=== PATIENT | female | born 2000 | race Caucasian/White ===

== ENCOUNTER → 2019-11-22 14:46 | Outpatient (CLI) | payer BC, SELFPAY ==
--- NOTE | 2019-11-22 14:52 | US_ITS ---
PROCEDURE: US THYROID CLINICAL INDICATION: THYROID NODULE Left-sided neck nodule COMPARISON: CSWO CT CERVICAL SPINE W/O CONT from 02/08/2016 FINDINGS: Right lobe: 2.1cm x 5.5cm x 2.4cm Left lobe: 2.4cm x 6.4cm x 2.6cm Isthmus: Thickened at 11 mm with heterogeneous echogenicity Additional findings: The there is diffuse bilateral heterogeneous echogenicity of the thyroid gland with multinodular configuration but no discrete nodule identified. There is a small subcutaneous nodule corresponding to the palpable abnormality in left paracentral aspect of the neck measuring 5 mm. This is nonspecific and could be due to small sebaceous cyst. There are low level internal echoes. The IMPRESSION: 1. Enlarged thyroid gland with heterogeneous echogenicity consistent with goiter. 2. Small subcutaneous nodule in the central aspect of neck on the left at 5 x 3 mm possibly due to a sebaceous cyst Dictated by: Dewey Giles MD 11/23/2019 12:44 Electronically signed by Dewey Giles MD in [place] 11/23/2019 12:44
== END ==
PROVIDERS: PCP Family Medicine; Visit Provider Family Medicine
DX: E04.1 Nontoxic single thyroid nodule (principal)
CPT/HCPCS: 76536

== ENCOUNTER 2023-11-27 08:18 | Outpatient (CLI) | payer BC, SELFPAY ==
--- NOTE | 2023-11-27 08:27 | US_ITS ---
PROCEDURE: US TRANSVAGINAL CLINICAL INDICATION: BLEEDING COMPARISON: No exams were available for comparison FINDINGS: Transvaginal sonographic images of the pelvis were obtained. UTERUS: 6.2cm x 4.5cmx 3.2cm anteverted with a combined endometrial thickness of 3.8mm. LEFT OVARY: 3.2cmx1.6 cmx1.9cm with a volume of 5.3ml. The left ovary appears polycystic with multiple peripheral follicles. RIGHT OVARY: 3.0cmx 3.0cmx1.9 cm with a volume of 8.8ml. The right ovary appears polycystic with multiple peripheral follicles. Both ovaries are seen and appear polycystic. Doppler flow to both ovaries are seen. There is no fluid in the cul-de-sac. IMPRESSION: 1. Anteverted uterus normal in shape and size. The endometrium is thin. 2. There is a small 3.2 mm anechoic circular area in the lower uterine segment. Suggest test. 3. Both ovaries are seen and appear polycystic. 4. No fluid in the cul-de-sac. Dictated by: Edmund Van MD 11/27/2023 09:35 Edmund Van MD in [place] 11/27/2023 09:35
== END 2023-11-27 23:59 | disposition home or self-care (01) ==
LOC: RAD 08:19
PROVIDERS: PCP Physician Assistant; Visit Provider Physician Assistant
DX: N93.9 Abnormal uterine and vaginal bleeding, unspecified (principal)
CPT/HCPCS: 76830

== ENCOUNTER 2023-12-24 07:52 | Outpatient (CLI) | payer BC, SELFPAY ==
[2023-12-24 08:10] LABS: Basophils # 0.1 K/mm3 (0-0.2); Basophils % 1.6 % (0.1-2.0); Eosinophils # 0.1 K/mm3 (0.0-0.4); Eosinophils % 2.9 % (0.1-12.0); Hematocrit 42.9 % (37.0-47.0); Hemoglobin 13.5 g/dL (12.2-16.2); Lymphocytes # 2.3 K/mm3 (0.7-4.5); Lymphocytes % 47.4 % (10-50); Mean Corpuscular HGB Conc 31.5 g/dL (31.8-35.4); Mean Corpuscular Hemoglobin 32.5 pg (27.0-31.2); Mean Corpuscular Volume 103.2 fl (81-99); Mean Platelet Volume 7.7 fl (7.4-10.4); Monocytes # 0.3 K/mm3 (0.1-1.0); Monocytes % 6.5 % (1.7-9.3); Neutrophils % 41.6 % (37.0-80.0); Platelet Count 302 K/mm3 (142-424); Red Blood Count 4.16 M/mm3 (4.20-5.40); Red Cell Distribution Width 12.7 % (11.5-17.5); White Blood Count 4.8 K/mm3 (4.8-10.8)
[2023-12-24 10:42] LABS: Albumin Level 4.3 g/dl (3.5-5.0); Chloride 106 mmol/L (98-107); Potassium 4.4 mmoL/L (3.5-5.1); Sodium 140 mmol/L (136-145)
[2023-12-24 10:44] LABS: Alanine Aminotransferase 19 U/L (12-78); Albumin/Globulin Ratio 1.4 (1.1-1.8); Anion Gap 7.4 mEq/L (5-15); Aspartate Amino Transferase 27 U/L (14-36); Blood Urea Nitrogen 19 mg/dl (7-17); Carbon Dioxide 31 mmol/L (22.0-30.0); Estimated Glomerular Filt Rate 88 ml/min (>60); GFR (African American) 107 ML/MIN (>60); Total Protein,Serum 7.3 g/dl (6.3-8.2)
[2023-12-24 10:45] LABS: Alkaline Phosphatase 43 U/L (38-126); Bilirubin,Total 0.6 mg/dl (0.2-1.3); Calcium 9.3 mg/dl (8.4-10.2); Chol/HDL Ratio 3.6 (1-3.5); Cholesterol 267 mg/dl (140-200); Glucose 75 mg/dl (74-100); Glucose,Fasting 75 mg/dl (74-100); HDL Cholesterol 74 mg/dl (40-60); Triglycerides 82 mg/dl (30-150); VLDL Cholesterol 16 mg/dL (0-40)
[2023-12-24 10:56] LABS: Direct LDL Cholesterol 146.39 mg/dL (100-129)
[2023-12-24 11:07] LABS: HCG,Quantitative < 2 mIU/ml (0-5.42)
[2023-12-24 11:40] LABS: Hemoglobin A1C 4.8 % (4.0-6.0)
[2023-12-25 10:43] LABS: Estradiol 20.9 pg/mL (.); FSH 3.9 mIU/mL (.); LH 1.1 mIU/mL (.); Progesterone 0.4 ng/mL (.); Prolactin 9.2 ng/mL (4.8-33.4)
[2023-12-25 17:43] LABS: Insulin Level Total 2.3 uIU/mL (2.6-24.9)
[2023-12-27 01:06] LABS: Anti Mullerian Hormone (AMH) 11.3 ng/mL (.)
[2024-01-08 09:13] LABS: Testosterone, Total, LC/MS 19 ng/dL (.)
== END 2023-12-24 23:59 | disposition home or self-care (01) ==
LOC: LAB 07:53
PROVIDERS: PCP Physician Assistant; Visit Provider Obstetrics & Gynecology
DX: E28.2 Polycystic ovarian syndrome (principal); Z31.9 Encounter for procreative management, unspecified
CPT/HCPCS: 36415; 80050; 80053; 80061; 82397; 82670; 82947; 83001; 83002; 83036; 83525; 84144; 84146; 84403; 84443; 84702; 85025

== ENCOUNTER 2023-12-26 07:15 | Outpatient (CLI) | payer BC, SELFPAY ==
[2023-12-26 11:48] LABS: Triiodothryronine (T3) Uptake 32 % (23.5-40.5)
[2023-12-26 11:49] LABS: Free Thyroxine Index 1.3 ug/dL (5.93-13.13)
== END 2023-12-26 23:59 | disposition home or self-care (01) ==
LOC: LAB 07:16
PROVIDERS: PCP Physician Assistant; Visit Provider Obstetrics & Gynecology
DX: R79.89 Other specified abnormal findings of blood chemistry (principal)
CPT/HCPCS: 36415; 84436; 84443; 84479

== ENCOUNTER 2024-02-20 07:26 | Outpatient (CLI) | payer BC, SELFPAY | END 2024-02-20 23:59 | disposition home or self-care (01) | LOC: LAB 07:27 | PROVIDERS: PCP Obstetrics & Gynecology; Visit Provider Obstetrics & Gynecology | DX: E03.9 Hypothyroidism, unspecified (principal) | CPT/HCPCS: 36415; 84443 ==

== ENCOUNTER 2024-04-09 08:14 | Outpatient (CLI) | payer BC, SELFPAY ==
[2024-04-09 10:30] LABS: Thyroid Stimulating Hormone 1.64 uIU/mL (0.465-4.68)
== END 2024-04-09 23:59 | disposition home or self-care (01) ==
PROVIDERS: PCP Physician Assistant; Visit Provider Obstetrics & Gynecology
DX: E03.9 Hypothyroidism, unspecified (principal)
CPT/HCPCS: 36415; 84443

== ENCOUNTER 2024-04-29 08:36 | Outpatient (CLI) | payer BC, SELFPAY ==
--- NOTE | 2024-04-29 08:37 | US_ITS ---
PROCEDURE: US TRANSVAGINAL CLINICAL INDICATION: No Period ,PCOS COMPARISON: US US TRANSVAGINAL from 11/27/2023 FINDINGS: Transvaginal sonographic images of the pelvis were obtained. UTERUS: 5.0cm x 3.8cmx 2.9cm anteverted and anteflexed with a combined endometrial thickness of 3.4mm. LEFT OVARY: 2.9cmx2.0cmx1.7cm with a volume of 5.1ml. There are multiple peripheral follicles giving the ovary a polycystic appearance. RIGHT OVARY: 4.0cmx 2.1cmx2.4cm with a volume of 10.8ml. There are multiple peripheral follicles giving the ovary a polycystic appearance. Both ovaries are seen and appear polycystic. Doppler flow to both ovaries are seen. There is a small amount of fluid around the right ovary and in the cul-de-sac.. IMPRESSION: 1. Anteverted and anteflexed uterus normal in shape and size. The endometrium is thin. 2. Both ovaries are seen and appear polycystic. 3. There is a small amount of free fluid around the right ovary and in the cul-de-sac. Dictated by: Edmund Van MD 04/29/2024 11:09 Edmund Van MD in [place] 04/29/2024 11:09
== END 2024-04-29 23:59 | disposition home or self-care (01) ==
LOC: RAD 08:37
PROVIDERS: PCP Physician Assistant; Visit Provider Obstetrics & Gynecology
DX: E28.2 Polycystic ovarian syndrome (principal); Z31.9 Encounter for procreative management, unspecified; E03.9 Hypothyroidism, unspecified
CPT/HCPCS: 76830

== ENCOUNTER 2024-05-06 07:42 | Outpatient (CLI) | payer BC, SELFPAY ==
[2024-05-06 08:13] LABS: Hematocrit 38.7 % (37.0-47.0); Hemoglobin 12.7 g/dL (12.2-16.2); Red Blood Count 4.07 M/mm3 (4.20-5.40); White Blood Count 3.8 K/mm3 (4.8-10.8)
[2024-05-06 08:14] LABS: Eosinophils # 0.1 K/mm3 (0.0-0.4); Eosinophils % 2.9 % (0.1-12.0); Lymphocytes # 1.4 K/mm3 (0.7-4.5); Lymphocytes % 35.4 % (10-50); Mean Corpuscular HGB Conc 32.8 g/dL (31.8-35.4); Mean Corpuscular Hemoglobin 31.2 pg (27.0-31.2); Mean Corpuscular Volume 95.1 fl (81-99); Mean Platelet Volume 9.6 fl (7.4-10.4); Monocytes # 0.5 K/mm3 (0.1-1.0); Monocytes % 12.9 % (1.7-9.3); Neutrophils # 1.8 K/mm3 (1.8-7.8); Neutrophils % 47.5 % (37.0-80.0); Platelet Count 279 K/mm3 (142-424); Red Cell Distribution Width 11.7 % (11.5-17.5)
[2024-05-06 08:47] LABS: Alanine Aminotransferase 21 U/L (12-78); Albumin Level 4.1 g/dl (3.5-5.0); Albumin/Globulin Ratio 1.6 (1.1-1.8); Alkaline Phosphatase 59 U/L (38-126); Aspartate Amino Transferase 30 U/L (14-36); Bilirubin,Total 0.7 mg/dl (0.2-1.3); Blood Urea Nitrogen 17 mg/dl (7-17); Calcium 9.4 mg/dl (8.4-10.2); Carbon Dioxide 36 mmol/L (22.0-30.0); Chloride 105 mmol/L (98-107); Cholesterol 198 mg/dl (140-200); Estimated Glomerular Filt Rate 76 ml/min (>60); GFR (African American) 92 ML/MIN (>60); Globulin 2.6 g/dL (1.3-3.2); Glucose 79 mg/dl (74-100); HDL Cholesterol 66 mg/dl (40-60); Sodium 141 mmol/L (136-145); Total Protein,Serum 6.7 g/dl (6.3-8.2); Triglycerides 91 mg/dl (30-150); VLDL Cholesterol 18 mg/dL (0-40)
[2024-05-06 08:58] LABS: Direct LDL Cholesterol 96.94 mg/dL (100-129)
[2024-05-06 09:07] LABS: Free Thyroxine Index 2.7 ug/dL (5.93-13.13); T4 (Thyroxine) 7.6 ug/dl (5.53-11.0); Triiodothryronine (T3) Uptake 35 % (23.5-40.5)
[2024-05-06 09:11] LABS: 25-OH Vitamin D, Total > 126 ng/mL (30-100); Hemoglobin A1C 4.7 % (4.0-6.0)
[2024-05-06 09:20] LABS: Thyroid Stimulating Hormone 1.26 uIU/mL (0.465-4.68)
[2024-05-06 09:49] LABS: Ferritin 50.5 ng/ml (6.24-137)
[2024-05-06 10:27] LABS: Anion Gap 4.2 mEq/L (5-15); Potassium 4.2 mmoL/L (3.5-5.1)
[2024-05-07 09:09] LABS: Estradiol 23.2 pg/mL (.); FSH 3.2 mIU/mL (.); Prolactin 5.3 ng/mL (4.8-33.4); Testosterone,Total 30 ng/dL (13-71)
== END 2024-05-06 23:59 | disposition home or self-care (01) ==
LOC: LAB 07:43
PROVIDERS: PCP Physician Assistant; Visit Provider Obstetrics & Gynecology
DX: Z31.9 Encounter for procreative management, unspecified (principal); E28.2 Polycystic ovarian syndrome; E03.9 Hypothyroidism, unspecified; E55.9 Vitamin D deficiency, unspecified
CPT/HCPCS: 36415; 80050; 80053; 80061; 82306; 82670; 82728; 83001; 83036; 83525; 83735; 84146; 84403; 84436; 84443; 84479; 85025

== ENCOUNTER 2024-07-15 07:29 | Outpatient (CLI) | payer BC, SELFPAY ==
[2024-07-15 09:05] LABS: Thyroid Stimulating Hormone 1.84 uIU/mL (0.465-4.68)
== END 2024-07-15 23:59 | disposition home or self-care (01) ==
LOC: LAB 07:30
PROVIDERS: PCP Physician Assistant; Visit Provider Obstetrics & Gynecology
DX: R53.83 Other fatigue (principal)
CPT/HCPCS: 36415; 84443

== ENCOUNTER 2024-11-04 07:50 | Outpatient (CLI) | payer BC, SELFPAY ==
--- OUTSIDE RECORDS SUMMARY | 2024-09-28 14:15 | XMS_ITS | Encounter Summary ---
Author Organization [facility] Address [address] [place] [address] Care Team Providers Care Digester Name Role Phone Pcp, No Primary Care Provider [phone] Source Comments This information has been disclosed to you from confidential records protectfrom disclosure by state law. You shall make no further disclosure of thisinformation without the specific, written, and informed release of theindividual to whom it pertains, or as otherwise permitted by law. A generalauthorization for the release of medical or other information is not sufficientfor the purposes of the release of HIV test results or diagnoses. TAN2985.24 Health Encounter Details Date Type Department Care Team (Late st Contact Info) Description 09/28/2024 2:15 PM EDT Clinical Support [facility] Reproductive Endocrinology and Infertility at [address] [address] Mirna Ventura MD [address] [place] [address] Marcelo Loo Encounter for assisted reproductive fertility procedure cycle (Primary Dx); Amenorrhea Social History Tobacco Use Types Packs/Day Years Used Date Smoking Tobacco: Never Smokeless Tobacco: Never Alcohol Use Standard Drinks/Week Comments Not Asked 0 (1 standard drink = 0.6 oz pur e alcohol) Rare Comments Unknown Sex and Gender Information Value Date Recorded Sex Assigned at Not on file Legal Sex Female 2:30 PM EST Gender Identity Not on file Sexual Orientation Not on file documented as of this encounter Progress Notes * Marcelo Loo - 09/28/2024 2:15 PM EDT Labs documented in this encounter Plan of Treatment Not on file documented as of this encounter Procedures Procedure Name Priority Date/Time Associated Diagnosis Comments POCT - PROGESTERONE Routine 09/30/2024 9 :00 AM EDT Encounter for assisted reproductive fertility procedure cycle POCT - ESTRADIOL Routine 09/30/2024 9:00 AM EDT Encounter for assisted reproductive fertility procedure cycle POCT - PROLACTIN Routine 09/30/2024 9:00 AM EDT Amenorrhea documented in this encounter Results * POCT - ESTRADIOL (09/30/2024 9:00 AM EDT) POCT - Estradiol 22.51 [facility] 09/30/2024 9:00 AM EDT us Mirna Ventura MD POINT OF CARE TEST ORDERABLE S Final Result Performing Organization Address [facility] Co de Phone Number [facility] [address] [place] [address] * POCT - PROGESTERONE (09/30/2024 9:00 AM EDT) POCT - Progesterone 0.182 [facility] Serum 09/30/2024 9:00 AM EDT us Mirna Ventura MD POINT OF CARE TEST ORDERABLE S Final Result Performing Organization Address [facility] Co de Phone Number [facility] [address] [place] [address] * POCT - Prolactin (09/30/2024 9:00 AM EDT) POCT - Prolactin 4.77 [facility] 09/30/2024 9:00 AM EDT Yennifer Antonio MD POINT OF CARE TEST ORDERABLES Final Result Performing Organization Address [facility]/ZIP Co de Phone Number [facility] [address] [place] [address] documented in this encounter Visit Diagnoses Diagnosis Encounter for assisted reproductive fertility procedure cycle- Primary Amenorrhea Absence of menstruation documented in this encounter Care Teams Digester Relationship Specialty Start Date End Date Pcp, No No Address PCP - General 07/12/24 documented as of this encounter
--- OUTSIDE RECORDS SUMMARY | 2024-09-28 14:30 | XMS_ITS | Encounter Summary ---
Author Organization [facility] Address [address] [place] [address] Care Team Providers Care Operator Weapon Locating Radar Name Role Phone Pcp, No Primary Care Provider [phone] Source Comments This information has been disclosed [...] release of HIV test results or diagnoses. [id number] Health Encounter Details Date Type Department Care Team (Late st Contact Info) Description 09/28/2024 2:30 PM EDT Clinical Support [facility] Reproductive Endocrinology and Infertility at [facility] [address] [address] Lawson Liu MD [address] [address] Mirna Ventura MD [address] [place] [address] Amenorrhea (Primary Dx); Fragile x chromosome Social History Tobacco Use Types Packs/Day Years [...] on file documented as of this encounter Last Filed Vital Signs Vital Sign Reading Time Taken Comments Blood Pressure 106/70 09/28/2024 1:53 PM EDT Pulse 70 09/28/2024 1:53 PM EDT Temperature - - Respiratory Rate - - Oxygen Saturation 100% 09/28/2024 1:53 PM EDT Inhaled Oxygen Concentration 100% 09/28/2024 1 :53 PM EDT Weight 59 kg (130 lb) 09/28/2024 1:53 PM EDT Height 165.1 cm (5' 5 ) 09/28/2024 1:53 PM EDT Body Mass Index 21.63 09/28/2024 1:53 PM EDT documented in this encounter Progress Notes * Mirna Ventura MD - 09/28/2024 2:30 PM EDT CC: Follow up, discuss test results/next steps HPI: 24 y.o. female here today to discuss the results of her diagnostic testing and discusstreatment options. Last menses July 2023 after she stopped OCP. 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-immune Pertinent History: Duration of infertility: 1 year Cavity/tubal assessment: SIS/HyCoSy on 09/30/2024 pending Ovarian reserve: AMHH 7.93 (08/13/2024) Genetic carrier screening: Fragile X pre-mutation on [place] 14 Prior treatments: none C#/Mo/Yr CRH/ Other Regimen Gn Y/N IUI Y/N Other info Partner history: Name:Dimas Mike : 12/18/1999 Semen Analysis Date Volume Total Conc Motility Grade Morph 08/2024 3 mL 51 mil/mL 80 % - 92 % Received semen analysis from [facility] Review of Systems: The following systems were reviewed and negative, except those noted in HPI: General, cardiovascular, respiratory, gastrointestinal, genitourinary, musculoskeletal, skin, neurologic, psychiatric, endocrine, heme, allergy Objective: Vitals: 09/28/24 1353 BP: 106/70 Patient Position: Sitting Pulse: 70 SpO2: 100% Weight: 130 lb (59 kg) Height: 5' 5 (1.651 m) General: No acute distress, alert & oriented x 3 Results Review: Lab Results Component Value Date ABOGROUP O 08/12/2024 RH Positive 08/12/2024 ABS Negative 08/12/2024 HGB 13.3 08/12/2024 HCT 40.7 08/12/2024 CREATININE 0.76 08/12/2024 POCTAMH 7.93 08/12/2024 POCTFSH 4.17 08/12/2024 POCTLHII 0.885 08/12/2024 POCTESTRDIOL 22.51 09/30/2024 POCTPROGSTRN 0.182 09/30/2024 POCTPRLCTIN 4.77 09/30/2024 Lab Results Component Value Date RUBELLAIGG 1.57 08/12/2024 VARICELLAIGG Non Reactive 08/12/2024 HEPBSAG Negative 08/12/2024 HCVAB Non Reactive 08/12/2024 Assessment: 24 y.o. 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 - Discussed that Fragile X is X linked dominant. Reviewed genetics and implicaitons. S/p genetic counseling - Discussed all treatment options in detail if pursuing Reviewed unmonitored and monitored OI/TIC vs OI/IUI vs IVF Discussed timeline for each option, success rates and costs Given patient's situation would recommend: IVF with PGT-M if they desire to screen for Fragile X, or OI/TIC, or try naturally - Reviewed timeline for OI - Patient would like to move forward with OI medication - Will try with LE 5 on 09/30 if ovaries appear suppressed; good chance she may not respond to oralsand my require gonadotropins; briefly reviewed increased risks of twins/cancellation - Written information/instructions given to patient - RTO on 09/30 or if + UPT I personally saw, examined, and counseled the patient with the fellow/resident/student/JASPAL and agree with the documented assessment and plan above. Mirna Ventura MD Number and Complexity of Problems Addressed 2 or more stable chronic illnesses Amount and/or Complexity of Data to be Reviewed and Analyzed 3+ review of the results of each unique test 2 unique tests ordered Risk of Complications and/or Morbidity or Mortality of Patient Management Minimal documented in this encounter Plan of Treatment Scheduled Orders Name Type Priority Associated Diagnoses Order Schedule POCT - Testosterone Point of Care Testing Routine Amenorrhea 1 Occurrences starting 09/28/2024 until 09/28/2025 documented as of this encounter Results * POCT - Prolactin (09/30/2024 9:00 AM EDT) POCT - Prolactin 4.77 [facility] 09/30/2024 9:00 AM EDT us Yennifer Antonio MD POINT OF CARE TEST ORDERABLES Final Result [facility] [address] [place] [address] documented in this encounter Visit Diagnoses Diagnosis Amenorrhea- Primary Absence of menstruation Fragile x chromosome documented in this encounter Care Teams Operator Weapon Locating Radar Relationship Specialty Start Date End Date Pcp, No No Address PCP - General 07/12/24 documented as of this encounter
--- OUTSIDE RECORDS SUMMARY | 2024-09-30 11:00 | XMS_ITS | Encounter Summary ---
Author Organization [facility] Address [address] [place] [address] Care Team Providers Care Head Of Geography Name Role Phone Pcp, No Primary Care Provider [phone] Source Comments This information has been disclosed [...] release of HIV test results or diagnoses. [id number] Health Encounter Details Date Type Department Care Team (Latest Contact Info) Description 09/30/2024 11:00 AM EDT Procedure visit [facility] Reproductive Endocrinology and Infertility at [facility] [address] [address] Lawson Liu MD 7687 [facility] [address] [place] [address] Amenorrhea (Primary Dx); Hypothalamic hypogonadism ([facility]); PCOS (polycystic ovarian syndrome) Social History Tobacco Use Types Packs/Day Years [...] Sign Reading Time Taken Comments Blood Pressure 104/82 09/30/2024 10:58 AM EDT Pulse 70 09/30/2024 10:58 AM EDT Temperature - - Respiratory Rate - - Oxygen Saturation 99% 09/30/2024 10:58 AM EDT Inhaled Oxygen Concentration 99% 09/30/2024 1 0:58 AM EDT Weight 59 kg (130 lb) 09/30/2024 10:58 AM EDT Height 165.1 cm (5' 5 ) 09/30/2024 10:58 AM EDT Body Mass Index 21.63 09/30/2024 10:58 AM EDT documented in this encounter Progress Notes * Lawson Liu MD - 09/30/2024 11:00 AM EDT SIS with HyCoSy - Procedure Note Indication/Diagnosis Desire to conceive Secondary Amenorrhea (failed provera withdrawal bleed) Hypo/Hypo PCOS Hypothyroidism H/o disorganized eating Fragile X premutation Varicella non-immune Ordering Provider Trupti Crisostomo NP No LMP recorded. Urine HCG test (today): negative Informed Consent The risks, benefits, and alternatives were discussed with the patient; including but not limited tobleeding, infection and damage to surrounding structures/perforation, or disruption of occult . She acknowledged these risks chose to proceed. Procedure in Detail Patient was placed in the dorsal lithotomy position. A speculum was inserted into the vagina. The cervix was identified, no concerning lesions were noted. The cervix was cleansed. The sonohystergram catheter was inserted using sterile technique and inflated. The speculum was removed and the transvaginal ultrasound probe inserted. HyCoSy Tubal assessment was performed. Using syringes, saline & air as contrast were slowly instilled into the cavity through the SHG catheter. Transverse images near the cornus were obtained. Bilateraladnexa were evaluated for contrast flow through the fallopian tubes. Proximal & distal tubal fill & spill were evaluated bilaterally; the presence of new fluid accumulation in the culdesac was also assessed (see findings). Saline infusion sonogram Sterile saline was injected through the SHG catheter. Distention was adequate. The ultrasound images were obtained, then the ultrasound probe removed. The catheter was removed from the uterus and discarded. Balloon Catheter: Yes Saline: Yes Tenaculum: No Betadine Prep: Yes NSAID (pre-procedure): yes Complications: none FINDINGS: Uterus: Normal contour. Uterine Cavity: Normal Right Ovary: resting, AFC 20 Left Ovary: resting, AFC 15 Right Tube: Fill and spill Left Tube: Fill and spill IMPRESSION: Normal cavity Normal uterine contour Bilateral patent tubes PLAN: RTO for follow up visit Procedure: ultrasound procedure today was performed by Dr. Yennifer Antonio (MEREDITH fellow), under my direct supervision. - Patient tolerated today's procedure with difficulty, ~7-8/10 pain. I was present for the entire procedure. I agree with fellow's findings and documentation of the procedure. MD LAWSON Rob MD 09/30/2024 5:45 PM - Patient has been seen by INSTALLATION SUPERINTENDENT Trupti Crisostomo from our service; please see prior notes on this patient. - In brief, Ms. Shikha Mike is a 24 y.o. with history of secondary amenorrhea, hypothyroidism, PCOS (AMH 11.3) and possible hypothalamic hypogonadism (FSH 3.9, LH 1.1, estradiol 20.9). Patient is also noted to have a history of disorganized eating (binge eating and bulimia)and weighing 230 lbs in high school, then 100 lb weight loss, and currently at her goal weight. - She lives in [place], [place]. 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 - Given her significant travel time (2 hours to [place]), I offered her a telehealth follow-upvisit with one of our providers that is licensed in [facility]. documented in this encounter Plan of Treatment Not on file documented as of this encounter Visit Diagnoses Diagnosis Amenorrhea- Primary Absence of menstruation Hypothalamic hypogonadism ([facility]) PCOS (polycystic ovarian syndrome) Polycystic ovaries documented in this encounter Care Teams Head Of Geography Relationship Specialty Start Date End Date Pcp, No No Address PCP - General 07/12/24 documented as of this encounter
--- OUTSIDE RECORDS SUMMARY | 2024-10-14 11:00 | XMS_ITS | Encounter Summary ---
Author Organization [facility] Address [address] [place] [address] Care Team Providers Care Freight Car Cleaner Name Role Phone Pcp, No Primary Care Provider [phone] Source Comments This information has been disclosed [...] release of HIV test results or diagnoses. [id number] Reason for Visit * Reason Comments Follow-up Encounter Details Date Type Department Care Team (Latest Contact Info) Description 10/14/2024 11:00 AM EDT Clinical Support [facility] Reproductive Endocrinology and Infertility at [facility] 76[address] [facility] [address] [place] [address] Trupti Neville APRN 7675 [facility] [address] [place] [address] Encounter for preconception consultation (Primary Dx); Amenorrhea; Hypothalamic hypogonadism ([facility]); PCOS (polycystic ovarian syndrome) Social History Tobacco [...] encounter Progress Notes * Trupti Zamarripa Kranthi, ORAL THERAPIST - 10/14/2024 11:00 AM EDT Telehealth Appointment [...] Genetic carrier screening: Fragile X pre-mutation on [place] 14 Prior treatments: none C#/Mo/Yr CRH/ Other Regimen Gn Y/N IUI Y/N Other info Partner history: Name:Dimas Mike : 12/18/1999 Semen Analysis Date Volume Total Conc Motility Grade Morph 08/2024 3 mL 51 mil/mL 80 % - 92 % Re[facility] from [facility] STIs: NEEDS Review of Systems: The following [...] will ask staff to send order via [employer] to have drawn locally. - Scheduled for [...] electronic or other health record, and performing sdy-dmvb-mi-face activities. Cosigned by Camilo Fernández MD at 10/14/2024 10:27 PM EDT Associated attestation - Camilo Fernández MD - 10/14/2024 10:27 PM EDT Agree with CHANNEL MANAGER's note. Will continue per plan as described above. Camilo Fernández M.D. documented in this encounter Plan of Treatment Not on file documented as of this encounter Visit Diagnoses Diagnosis Encounter for preconception consultation- Primary Amenorrhea Absence of menstruation Hypothalamic hypogonadism ([facility]) PCOS (polycystic ovarian syndrome) Polycystic ovaries documented in this encounter Care Teams Freight Car Cleaner Relationship Specialty Start Date End Date Pcp, No No Address PCP - General 07/12/24 documented as of this encounter
--- OUTSIDE RECORDS SUMMARY | 2024-11-04 07:53 | XMS_ITS | Encounter Summary ---
Author Organization [facility] Address [address] [place] [address] Care Team Providers Care Outboard Motor Mechanic Name Role Phone Pcp, No Primary Care Provider [phone] Source Comments This information has been disclosed [...] release of HIV test results or diagnoses. [id number] Health Encounter Details Date Type Department Care Team (Late st Contact Info) Description 09/12/2024 Telephone [facility] Reproductive Endocrinology and Infertility at [place] [address] [facility] [address] [place] [address] Trupti Crisostomo APRN [address] [address] Social History Tobacco Use Types Packs/Day Years [...] on file documented as of this encounter Miscellaneous Notes * Telephone Encounter - Trupti Crisostomo APRN - 09/13/2024 1:34 PM EDT signed * Telephone Encounter - Christie Skinner MA - 09/13/2024 10:14 AM EDT Pt returned call. Pt is scheduled for 09/30 at for SIS/Hycosy with Dr. Lui. Pt will get E2 and [id number] at her follow up appt on 09/28 at [facility] with [facility]. Liu. Please sign orders. * Telephone Encounter - Lucia Yip MA - 09/13/2024 9:46 AM EDT LVM asking patient to return call to office * Telephone Encounter - Trupti Crisostomo APRN - 09/12/2024 5:29 PM EDT Please contact patient and schedule random SIS/HyCoSy with STAT E2 and P4 1-2 days prior. Please send me a message once scheduled to that I can ensure her labs are reviewed prior to her procedure. Thanks! * Telephone Encounter - Lucia Yip MA - 09/12/2024 2:33 PM EDT Patient is calling in to give Trupti an update about her menses. Patient has taken provera, and patient took her last dose on 08/28/24 and still has started her cycle. Please advise documented in this encounter Plan of Treatment Scheduled Orders Name Type Priority Associated Diagnoses Orde r Schedule Estradiol (Sensitive) Lab STAT Amenorrhea 1 Occurrences starting 09/13/2024 until 03/28/2025 Progesterone Lab STAT Amenorrhea 1 Occurrences starting 09/13/2024 until 03/28/2025 documented as of this encounter Visit Diagnoses Diagnosis Amenorrhea- Primary Absence of menstruation documented in this encounter Care Teams Outboard Motor Mechanic Relationship Specialty Start Date End Date Pcp, No No Address PCP - General 07/12/24 documented as of this encounter
--- OUTSIDE RECORDS SUMMARY | 2024-11-04 07:53 | XMS_ITS | Clinical Summary ---
Author Organization [facility] Address [address] [place] [address] Care Team Providers Care Crutch Maker Name Role Phone Pcp, No Primary Care Provider [phone] Source Comments This information has been disclosed to you from confidential records protectedfrom disclosure by state law. You shall make no further disclosure of thisinformation without the specific, written, and informed release of theindividual to whom it pertains, or as otherwise permitted by law. A generalauthorization for the release of medical or other information is not sufficientfor the purposes of therelease of HIV test results or diagnoses. [id number] Allergies No known active allergies Medications levothyroxine (SYNTHROID) 75 MCG tablet Take 1 tablet (75 mcg total) by mouth every morning before breakfast. Active multivitamin tablet Take 1 tablet by mouth daily. Active ubidecarenone (COQ-10 ORAL) Take by mouth. Active melatonin 5 mg Tab Take 1 tablet (5 mg total) by mouth. Active Active Problems Problem Noted Date Diagnosed Date Amenorrhea 09/30/2024 PCOS (polycystic ovarian syndrome) 09/30/2024 Hypothalamic hypogonadism 09/30/2024 Encounters Date Type Department Care Team Description 10/14/2024 11:00 AM EDT Clinical Support [facility] Reproductive Endocrinology and Infertility at [address] [address] Trupti Crisostomo APRN Encounter for preconception consultation (Primary Dx); Amenorrhea; Hypothalamic hypogonadism ([facility]); PCOS (polycystic ovarian syndrome) 10/13/2024 Telephone [facility] Reproductive Endocrinology and Infertility at [address] [address] Christie Skinner MA 09/30/2024 11:00 AM EDT Procedure visit [facility]inology and Infertility at [address] [address] Lawson Liu MD Amenorrhea (Primary Dx); Hypothalamic hypogonadism ([facility]); PCOS (polycystic ovarian syndrome) 09/28/2024 2:30 PM EDT Clinical Support [facility] Reproductive Endocrinology and Infertility at [address] [address] Lawson Liu MD Hurley, Emily Gay, MD Amenorrhea (Primary Dx); 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/2024 2:15 PM EDT Clinical Support [facility] Reproductive Endocrinology and Infertility at [address] [address] Mirna Ventura MD Walters, Murphy Encounter for assisted reproductive fertility procedure cycle (Primary Dx); Amenorrhea 09/12/2024 Telephone [facility] Repro[facility] Endocrinology and Infertility at [place] [address] [facility] [address] [place] [address] Trupti Crisostomo, FORKLIFT PICKER 08/26/2024 Telephone [facility] Reproductive Endocrinology and Infertility at [address] [address] Trupti Crisostomo, FORKLIFT PICKER 08/26/2024 Abstract [facility]ocr[facility]ology and Infertility at [address] [address] Octavia Frank MA 08/26/2024 Telephone [facility] Rep[facility] Endocrinology and Infertility at [place] [phone] [address] Trupti Crisostomo, CELIA 08/19/2024 Telephone [facility]ro[facility]ology [facility] Infertility at [place] [phone] [address] Christie Skinner MA 08/19/2024 Orders Only [facility] Reproductive [facility]ocrinology and Infertility at [address] [place] [address] Trupti Crisostomo APRN Eating disorder, unspecified type (Primary Dx) 08/12/2024 10:00 AM EDT Office Visit [facility] Reproductive Endocrinology and Infertility at [facility] [address] [facility] [address] [place] [address] Trupti Crisostomo APRN Amenorrhea (Primary Dx); Immunity status testing; Blood typing encounter; Encounter for preconception consultation; Genetic screening; PCOS (polycystic ovarian syndrome); Screening examination for STD (sexually transmitted disease) 08/12/2024 Orders Only [facility] Reproductive Endocrinology and Infertility at [facility] [address] [facility] [address] [place] [address] Trupti Crisostomo APRN from Last 3 Months Family History Medical History Relation Comments Dementia Maternal Grandfather Dementia Maternal Grandmother Diabetes Maternal Grandmother Hypothyroidism Mother Alzheimer's disease Paternal Grandfather Lung Cancer Paternal Grandmother Relation Status Comments Maternal Grandfather Maternal Grandmother Mother Paternal Grandfather Paternal Grandmother Social History Tobacco Use Types Packs/Day Years Used Date Smoking Tobacco: Never Smokeless Tobacco: Never Tobacco Cessation:Counseling Given: Not Answered Alcohol Use Standard Drinks/Week Comments Not Asked 0 (1 standard drink = 0.6 oz pur e alcohol) Rare Comments Unknown Sex and Gender Information Value Date Recorded Sex Assigned at Not on file Legal Sex Female 2:30 PM EST Gender Identity Not on file Sexual Orientation Not on file Last Filed Vital Signs Vital Sign Reading Time Taken Comments Blood Pressure 104/82 09/30/2024 10:58 AM EDT Pulse 70 09/30/2024 10:58 AM EDT Temperature - - Respiratory Rate - - Oxygen Saturation 99% 09/30/2024 10:58 AM EDT Inhaled Oxygen Concentration 99% 09/30/2024 1 0:58 AM EDT Weight 61.2 kg (135 lb) 10/13/2024 1:58 PM EDT Height 165.1 cm (5' 5 ) 10/13/2024 1:58 PM EDT Body Mass Index 22.47 10/13/2024 1:58 PM EDT Plan of Treatment Health Maintenance Due Date Last Done Comments Immunization: HPV (1 - 3-dos e series) 2014 Alcohol Misuse Screening 2017 Depression Screening 2017 HIV Screening 2017 Immunization: DTaP/Tdap/Td ( 1 - Tdap) 2018 Immunization: Hepatitis B (1 of 3 - 19+ 3-dose series) 2018 Cervical Cancer Screening/Pa p Smear (MyChart) 2020 Immunization: COVID-19 ( season) 2024 Immunization: Influenza (MyC amor) (Season Ended) 2025 Hepatitis C Screening (MyChart) Completed Immunization: Meningococcal ACWY Aged Out No longer eligible based on patient's age to complete this topic Immunization: Pneumococcal Aged Out N o longer eligible based on patient's age to complete this topic Procedures Procedure Name Priority Date/Time Associated Diagnosis Comments POCT - PROGESTERONE Routine 09/30/2024 9 :00 AM EDT Encounter for assisted reproductive fertility procedure cycle POCT - ESTRADIOL Routine 09/30/2024 9:0 0 AM EDT Encounter for assisted reproductive fertility procedure cycle POCT - PROLACTIN Routine 09/30/2024 9:00 AM EDT Amenorrhea POCT - LH II Routine 08/12/2024 1:58 PM EDT Amenorrhea Immunity status testing Blood typing encounter Encounter for preconception consultation Genetic screening PCOS (polycystic ovarian syndrome) Screening examination for STD (sexually transmitted disease) POCT - FSH Routine 08/12/2024 1:58 PM EDT Amenorrhea Immunity status testing Blood typing encounter Encounter for preconception consultation Genetic screening PCOS (polycystic ovarian syndrome) Screening examination for STD (sexually transmitted disease) POCT - ESTRADIOL Routine 08/12/2024 1:58 PM EDT Amenorrhea Immunity status testing Blood typing encounter Encounter for preconception consultation Genetic screening PCOS (polycystic ovarian syndrome) Screening examination for STD (sexually transmitted disease) POCT ANTI-MULLERIAN HORMONE Routine 08/12/2024 1:58 PM EDT Amenorrhea Immunity status testing Blood typing encounter Encounter for preconception consultation Genetic screening PCOS (polycystic ovarian syndrome) Screening examination for STD (sexually transmitted disease) ANTIBODY SCREEN Routine 08/12/2024 11:45 AM EDT ABO/RH Routine 08/12/2024 11:45 AM EDT BEACON CARRIER SCREEN;14 GENES Routine 08/12/2024 11:45 AM EDT 17-OH PROGESTERONE LCMS Routine 08/12/2024 11:45 AM EDT TREPONEMA PALLIDUM AB WITH REFLEX Routine 08/12/2024 11:45 AM EDT VITAMIN D 25 HYDROXY Routine 08/12/2024 11:45 AM EDT HEPATITIS B SURFACE ANTIGEN Routine 08/12/2024 11:45 AM EDT VARICELLA ZOSTER ANTIBODY, IGG Routine 08/12/2024 11:45 AM EDT PANEL [id number] Routine 08/12/2024 11:45 AM EDT RUBELLA IMMUNE STATUS Routine 08/12/2024 11:45 AM EDT DHEA-SULFATE Routine 08/12/2024 11:45 AM EDT INTERPRETATION: (HCV AB) Routine 08/12/2024 11:45 AM EDT HEPATITIS C AB W/REFLEX TO HCV RNA, QN, PCR Routine 08/12/2024 11:45 AM EDT CBC Routine 08/12/2024 11:45 AM EDT COMPREHENSIVE METABOLIC PANEL Routine 08/12/2024 11:45 AM EDT from Last 3 Months Results * POCT - PROGESTERONE (09/30/2024 9:00 AM EDT) POCT - Progesterone 0.182 [facility] Serum 09/30/2024 9:00 AM EDT Mirna Ventura MD POINT OF CARE TEST ORDERABLE S Final Result Performing Organization Address [facility] Co de Phone Number [address] [address] * POCT - ESTRADIOL (09/30/2024 9:00 AM EDT) Only the most recent of2 resultswithin the time period is included. POCT - Estradiol 22.51 [facility] 09/30/2024 9:00 AM EDT Mirna Ventura MD POINT OF CARE TEST ORDERABLE S Final Result Performing Organization Address [facility] de Phone Number [address] [address] * POCT - Prolactin (09/30/2024 9:00 AM EDT) POCT - Prolactin 4.77 [facility] 09/30/2024 9:00 AM EDT Yennifer Antonio MD POINT OF CARE TEST ORDERABLES Final Result Performing Organization Address [facility] Co de Phone Number [address] [address] * POCT Anti-Mullerian Hormone (08/12/2024 1:58 PM EDT) POCT - Anti-Mullerian Hormone 7.93 0.89 - 9.85 ng/ml [facility] Blood UPPER LIMB STRUCTURE / Unknown 08/12/2024 1:58 PM EDT Trupti Crisostomo APRN POINT OF CARE TEST ORDERA BLES Final Result Performing Organization Address [facility] Co de Phone Number [facility] [address] [place] [address] * POCT - LH II (08/12/2024 1:58 PM EDT) [facility] POCT - LH II 0.885 [facility] Serum 08/12/2024 1:58 PM EDT Trupti Crisostomo APRN POINT OF CARE TEST ORDERA BLES Final Result Performing Organization Address [facility] Co de Phone Number [facility] [address] [place] [address] * POCT - FSH (08/12/2024 1:58 PM EDT) [facility] POCT - FSH 4.17 [facility] 08/12/2024 1:58 PM EDT Trupti Crisostomo APRN POINT OF CARE TEST ORDERA BLES Final Result Performing Organization Address [facility] Co de Phone Number [facility] [address] [place] [address] * Panel [id number] (08/12/2024 11:45 AM EDT) [facility] HIV Screen 4th Generation wRfx Non Reactive Non Reactive [facility] 1 Comment: HIV-1/HIV-2 antibodies and HIV-1 p24 antigen were NOT detected. There is no laboratory evidence of HIV infection. HIV Negative 08/12/2024 11:4 5 AM EDT 08/12/2024 Narrative [facility] - 08/13/2024 6:06 AM EDT Performed at: 01 - [facility] [id number] Sexual Assault Nurse: David Dean PhD, Phone: [phone] Trupti Crisostomo APRN LAB BLOOD ORDERABLES [place] Result [facility] 1 * Syphilis Screening (Trepia) (08/12/2024 11:45 AM EDT) Pathologist [facility] T pallidum Antibodies (TP-PA) Non Reactive Non Reactive [facility] 1 08/12/2024 11:4 5 AM EDT 08/12/2024 Narrative [facility] - 08/14/2024 7:06 PM EDT Performed at: [address] [id number] Sexual Assault Nurse: Naomy Giles MD, Phone: [phone] Trupti Crisostomo APRN LAB BLOOD ORDERABLES [place] Result Performing Organization Address [facility] Co de Phone Number [facility] 1 * 17-OH Progesterone LCMS (08/12/2024 11:45 AM EDT) Pathologist [facility] 17-Hydroxyproges terone 24 ng/dL [facility] 1 Comment: Adult Female Follicular 15 - 70 Luteal 35 - 290 08/12/2024 11:4 5 AM EDT 08/12/2024 Narrative [facility] - 08/17/2024 6:06 AM EDT Test(s) 646666-49-[id number] Progesterone LCMS was developed and its performance characteristics determined by [facility]. It has not been cleared or approved by the Food and Drug Administration. 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 Co de Phone Number [facility] 1 * Rubella Immune Status (08/12/2024 11:45 AM EDT) Pathologist [facility] Rubella Antibodies, IgG 1.57 Immune >0.99 index [facility] 1 Comment: Non-immune <0.90 Equivocal 0.90 - 0.99 Immune >0.99 08/12/2024 11:4 5 AM EDT 08/12/2024 Narrative [facility] - 08/13/2024 6:06 AM EDT Performed at: [address] [place] [id number] Sexual Assault Nurse: David Dean PhD, Phone: [phone] Trupti Marilou Crisostomo APRN LAB BLOOD ORDERABLES [place] Result Performing Organization Address [facility] de Phone Number [facility] 1 * Interpretation: (HCV Ab) (08/12/2024 11:45 AM EDT) [facility] Interpretation: (HCV Ab) Comment [facility] 1 Comment: Not infected with HCV unless early or acute infection is suspected (which may be delayed in an immunocompromised individual), or other evidence exists to indicate HCV infection. 08/12/2024 11:4 5 AM EDT 08/12/2024 Narrative [facility] - 08/13/2024 6:06 AM EDT Performed at: [address] [place] [id number] Sexual Assault Nurse: David Dean PhD, Phone: [phone] Trupti Marilou Crisostomo APRN LAB BLOOD ORDERABLES [place] Result [facility] 1 * Hepatitis C Ab w/reflex to HCV RNA, QN, PCR (08/12/2024 11:45 AM EDT) Pathologist [facility] HCV Ab Non Reactive Non Reactive [facility] 1 08/12/2024 11:4 5 AM EDT 08/12/2024 Narrative [facility] - 08/13/2024 6:06 AM EDT Performed at: [address] [id number] Sexual Assault Nurse: David Dean PhD, Phone: [phone] Trupti Marilou Crisostomo APRN LAB BLOOD ORDERABLES [place] Result Performing Organization Address [facility] Co de Phone Number [facility] 1 * ABO/Rh (08/12/2024 11:45 AM EDT) [facility] ABO Grouping O [facility] 1 Rh Type Positive [facility] 1 Comment: Please note: Prior records for this patient's ABO / Rh type are not available for additional verification. 08/12/2024 11:4 5 AM EDT 08/12/2024 Narrative [facility] - 08/13/2024 10:07 AM EDT Performed at: [facility] [id number] Sexual Assault Nurse: David Dean PhD, Phone: [phone] Trupti Marilou Crisostomo FORKLIFT PICKER BLOOD BANK TEST ORDERABLE S Final Result Performing Organization Address City/[facility] Co de Phone Number [facility] 1 * Vitamin D 25 hydroxy (08/12/2024 11:45 AM EDT) [facility] Vit D, 25-Hydroxy 63.7 30.0 - 100.0 ng/mL [facility] 1 Comment: Vitamin D deficiency has been defined by the [place] of Medicine and an Endocrine Society practice guideline as a level of serum 25-OH vitamin D less than 20 ng/mL (1,2). The Endocrine Society went on to further define vitamin D insufficiency as a level between 21 and 29 ng/mL (2). 1. IOM ([place] of Medicine). 2010. Dietary reference intakes for calcium and D. [place]: The National Academies Press. 2. Marshall MF, Kim NC, Arlene SALCEDO, et al. Evaluation, treatment, and prevention of vitamin D deficiency: an Endocrine Society clinical practice guideline. JCEM. 2010; 96():1911-30. 08/12/2024 11:4 5 AM EDT 08/12/2024 Narrative [facility] - 08/13/2024 8:07 AM EDT Performed at: [address] [id number] Sexual Assault Nurse: David Dean PhD, Phone: [phone] Trupti Crisostomo APRN LAB BLOOD ORDERABLES [place] Result Performing Organization Address [facility] de Phone Number [facility] 1 * DHEA-sulfate, serum (08/12/2024 11:45 AM EDT) DHEA Sulfate 155.0 84.8 - 378.0 ug/dL [facility] 1 08/12/2024 11:4 5 AM EDT 08/12/2024 Narrative [facility] - 08/13/2024 6:06 AM EDT Performed at: [facility] [id number] Sexual Assault Nurse: David Dean PhD, Phone: [phone] Trupti Crisostomo APRN LAB BLOOD ORDERABLES [place] Result Performing Organization Address [facility] Co de Phone Number [facility] 1 * Hepatitis B surface antigen (08/12/2024 11:45 AM EDT) Hep B Surface Ag Negative Negative [facility] 1 08/12/2024 11:4 5 AM EDT 08/12/2024 Narrative [facility] - 08/13/2024 6:06 AM EDT Performed at: [address] [id number] Sexual Assault Nurse: David Dean PhD, Phone: [phone] us Trupti Crisostomo APRN LAB BLOOD ORDERABLES [place] Result [facility] * (ABNORMAL) CBC (08/12/2024 11:45 AM EDT) WBC 5.8 3.4 - 10.8 x10E3/uL [facility] 1 RBC 4.25 3.77 - 5.28 x10E6/uL [facility] 1 Hemoglobin 13.3 11.1 - 15.9 g/dL [facility] 1 Hematocrit 40.7 34.0 - 46.6 % [facility] 1 MCV 96 79 - 97 fL [facility] 1 MCH 31.3 26.6 - 33.0 pg [facility] 1 MCHC 32.7 31.5 - 35.7 g/dL [facility] 1 RDW 11.6(L) 11.7 - 15.4 % [facility] 1 Platelets 353 150 - 450 x10E3/uL [facility] 1 08/12/2024 11:4 5 AM EDT 08/12/2024 Narrative [facility] - 08/13/2024 6:06 AM EDT Performed at: [address] [id number] Sexual Assault Nurse: David Dean PhD, Phone: [phone] us Trupti Crisostomo APRN LAB BLOOD ORDERABLES [place] Result Performing Organization Address City/[facility]/ZIP Co de Phone Number [facility] * Antibody screen (08/12/2024 11:45 AM EDT) Antibody Screen Negative Negative [facility] 1 08/12/2024 11:4 5 AM EDT 08/12/2024 Narrative [facility] - 08/13/2024 10:07 AM EDT Performed at: [address] [id number] Sexual Assault Nurse: David Dean PhD, Phone: [phone] Trupti Crisostomo APRN BLOOD BANK TEST ORDERABLE S Final Result Performing Organization Address [facility] de Phone Number [facility] 1 * Varicella zoster antibody, IgG (08/12/2024 11:45 AM EDT) Pathologist [facility] Varicella IgG Non Reactive Non Reactive [facility] 1 Comment: Please note reference interval change A Reactive result is considered evidence of immunity to VZV. Reactive indicates that VZV IgG was detected consistent with previous infection and/or vaccination. A Non Reactive result indicates that VZV IgG was not detected suggesting that immunity has not been acquired. 08/12/2024 11:4 5 AM EDT 08/12/2024 Narrative [facility] - 08/13/2024 6:06 AM EDT Performed at: [address] [id number] Sexual Assault Nurse: David Dean PhD, Phone: [phone] Trupti Crisostomo APRN LAB BLOOD ORDERABLES [place] Result Performing Organization Address [facility] Co de Phone Number [facility] 1 * (ABNORMAL) Comprehensive metabolic panel (08/12/2024 11:45 AM EDT) Pathologist [facility] Glucose 80 70 - 99 mg/dL [facility] 1 BUN 21(H) 6 - 20 mg/dL [facility] 1 Creatinine 0.76 0.57 - 1.00 mg/dL [facility] 1 EGFR 111 >59 mL/min/1.7 3 [facility] 1 BUN/Creatinine Ratio 28(H) 9 - 23 [facility] 1 Sodium 141 134 - 144 mmol/L [facility] 1 Potassium 4.5 3.5 - 5.2 mmol/L [facility] 1 Chloride 104 96 - 106 mmol/L [facility] 1 CO2 26 20 - 29 mmol/L [facility] 1 Calcium 9.6 8.7 - 10.2 mg/dL [facility] 1 Total Protein 7.2 6.0 - 8.5 g/dL [facility] 1 Albumin 4.3 4.0 - 5.0 g/dL [facility] 1 Globulin, Total 2.9 1.5 - 4.5 g/dL [facility] 1 Total Bilirubin 0.2 0.0 - 1.2 mg/dL [facility] 1 Alkaline Phosphatase 74 44 - 121 IU/L [facility] 1 AST 20 0 - 40 IU/L [facility] 1 ALT 15 0 - 32 IU/L [facility] 1 08/12/2024 11:4 5 AM EDT 08/12/2024 Narrative [facility] - 08/13/2024 6:06 AM EDT Performed at: 01 - [facility] [address] [id number] Sexual Assault Nurse: David Dean PhD, Phone: [phone] us Trupti Crisostomo FORKLIFT PICKER LAB BLOOD ORDERABLES [place] Result [facility] 1 from Last 3 Months Insurance ACCESS Care Teams Crutch Maker Relationship Specialty Start Date End Date Pcp, No No Address PCP - General 07/12/24
--- OUTSIDE RECORDS SUMMARY | 2024-11-04 07:53 | XMS_ITS | Encounter Summary ---
Author Organization [facility] Address [address] [place] [address] Care Team Providers Care It Risk Advisor Name Role Phone Pcp, No Primary Care Provider [phone] Source Comments This information has been disclosed [...] release of HIV test results or diagnoses. [id number] Health Encounter Details Date Type Department Care Team (Late st Contact Info) Description 10/13/2024 Telephone [facility] Reproductive Endocrinology and Infertility at [place] [phone] Christie Skinner MA Social History Tobacco Use Types Packs/Day Years [...] encounter Miscellaneous Notes * Telephone Encounter - Christie Skinner MA - 10/13/2024 11:43 AM EDT Attempted to reach pt to complete intake. LVM to call the office back. documented in this encounter Plan of Treatment Not on file documented as of this encounter Visit Diagnoses Not on filedocumented in this encounter Care Teams It Risk Advisor Relationship Specialty Start Date End Date Pcp, No No Address PCP - General 07/12/24 documented as of this encounter
[2024-11-04 09:07] LABS: Thyroid Stimulating Hormone 0.62 uIU/mL (0.465-4.68)
== END 2024-11-04 23:59 | disposition home or self-care (01) ==
LOC: LAB 07:52
PROVIDERS: PCP Physician Assistant; Visit Provider Obstetrics & Gynecology
DX: E03.9 Hypothyroidism, unspecified (principal)
CPT/HCPCS: 36415; 84443

== ENCOUNTER 2024-12-13 07:16 | Outpatient (CLI) | payer OTHER, BC, SELFPAY ==
--- OUTSIDE RECORDS SUMMARY | 2024-10-14 11:00 | XMS_ITS | Encounter Summary ---
Author Organization [facility] Address [address] [place] [address] Care Team Providers Care Deputy Manager Name Role Phone Pcp, No Primary Care Provider [phone] Source Comments This information has been disclosed [...] release of HIV test results or diagnoses. [id number] Reason for Visit * Reason Comments Follow-up Encounter Details Date Type Department Care Team (Latest Contact Info) Description 10/14/2024 11:00 AM EDT Clinical Support [facility] Reproductive Endocrinology and Infertility at [facility] 76[address] [facility] [address] [place] [address] Trupti Neville APRN 7675 [facility] [address] [place] [address] Encounter for preconception consultation (Primary Dx); Amenorrhea; Hypothalamic hypogonadism ([facility]); PCOS (polycystic ovarian syndrome) Social History [...] encounter Progress Notes * Trupti Zamarripa Kranthi, MANAGEMENT AND BUDGET ANALYST - 10/14/2024 11:00 AM EDT Telehealth Appointment [...] Genetic carrier screening: Fragile X pre-mutation on [place] 14 Prior treatments: none C#/Mo/Yr CRH/ Other Regimen Gn Y/N IUI Y/N Other info Partner history: Name:Dimas Mike : 12/18/1999 Semen Analysis Date Volume Total Conc Motility Grade Morph 08/2024 3 mL 51 mil/mL 80 % - 92 % Received semen analysis from [facility] STIs: NEEDS Review of Systems: [...] will ask staff to send order via [employer]and[employer] to have drawn locally. - Scheduled for [...] electronic or other health record, and performing qps-rgxa-ca-face activities. Cosigned by Camilo Fernández MD at 10/14/2024 10:27 PM EDT Associated attestation - Camilo Fernández MD - 10/14/2024 10:27 PM EDT Agree with DOCTORATE OF CHIROPRACTIC's note. Will continue per plan as described above. Camilo Fernández M.D. documented in this encounter Plan of Treatment Not on file documented as of this encounter Visit Diagnoses Diagnosis Encounter for preconception consultation- Primary Amenorrhea Absence of menstruation Hypothalamic hypogonadism ([facility]) PCOS (polycystic ovarian syndrome) Polycystic ovaries documented in this encounter Care Teams Deputy Manager Relationship Specialty Start Date End Date Pcp, No No Address PCP - General 07/12/24 documented as of this encounter
--- OUTSIDE RECORDS SUMMARY | 2024-12-13 07:17 | XMS_ITS | Clinical Summary ---
Author Organization [facility] Address [address] [place] [address] Care Team Providers Care Practice Specialist Name Role Phone Pcp, No Primary Care Provider [phone] Source Comments This information has been disclosed [...] therelease of HIV test results or diagnoses. [id number] Allergies No known active allergies Medications [...] Description 10/14/2024 11:00 AM EDT Clinical Support [facility] Reproductive Endocrinology and Infertility at [address] [address] Trupti Crisostomo APRN Encounter for preconception consultation (Primary Dx); Amenorrhea; Hypothalamic hypogonadism ([facility]-HCC); PCOS (polycystic ovarian syndrome) 10/13/2024 Telephone [facility] Reproductive Endocrinology and Infertility at [address] [address] Christie Skinner MA 09/30/2024 11:00 AM EDT Procedure visit [facility] Reproductive Endocrinology and Infertility at [address] [address] Lawson Liu MD Amenorrhea (Primary Dx); Hypothalamic hypogonadism ([facility]-HCC); PCOS (polycystic ovarian syndrome) 09/28/2024 2:30 PM EDT Clinical Support [facility] Reproductive Endocrinology and Infertility at [address] [address] Lawson Liu MD Hurley, Emily Gay, MD Amenorrhea (Primary Dx); 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/2024 2:15 PM EDT Clinical Support [facility] Reproductive Endocrinology and Infertility at [address] [address] Mirna Ventura MD Walters, Murphy Encounter for assisted reproductive fertility procedure cycle (Primary Dx); Amenorrhea from Last 3 Months Family History Medical [...] ( season) 2024 Immunization: Influenza (MyC amor) (#1) 2025 Hepatitis C Screening (MyChart) Completed Immunization: [...] PROLACTIN Routine 09/30/2024 9:00 AM EDT Amenorrhea HEPATITIS C AB W/REFLEX TO HCV RNA, QN, PCR Routine 08/12/2024 11:45 AM EDT from Last 3 Months or Most Recently Relevant to Health Maintenance Results * POCT - PROGESTERONE (09/30/2024 9:00 AM EDT) POCT - Progesterone 0.182 [facility] Serum 09/30/2024 9:00 AM EDT Mirna Ventura MD POINT OF CARE TEST ORDERABLE S Final Result Performing Organization Address [facility]/ZIP Co de Phone Number [facility] [address] [place] [address] * POCT - ESTRADIOL (09/30/2024 9:00 AM EDT) Pathologist [facility] POCT - Estradiol 22.51 [facility] 09/30/2024 9:00 AM EDT Mirna Ventura MD POINT OF CARE TEST ORDERABLE S Final Result Performing Organization Address [facility] Co de Phone Number [facility] [address] [place] [address] * POCT - Prolactin (09/30/2024 9:00 AM EDT) Pathologist [facility] POCT - Prolactin 4.77 [facility] 09/30/2024 9:00 AM EDT Yennifer Antonio MD POINT OF CARE TEST ORDERABLES Final Result Performing Organization Address [facility] Co de Phone Number [facility] [address] [place] [address] * Hepatitis C Ab w/reflex to HCV RNA, QN, PCR (08/12/2024 11:45 AM EDT) [facility] HCV Ab Non Reactive Non Reactive [facility] 1 08/12/2024 11:4 5 AM EDT 08/12/2024 Narrative [facility] - 08/13/2024 6:06 AM EDT Performed at: 01 - [facility] [address] [id number] Brand Protection Manager: David Dean PhD, Phone: [phone] us Trupti Crisostomo APRN LAB BLOOD ORDERABLES Kenia l Result Performing Organization Address City/State/[facility] Co de Phone Number [facility] 1 from Last 3 Months or Most Recently Relevant to Health Maintenance Insurance BL[employer] Care Teams Practice Specialist Relationship Specialty Start Date End Date Pcp, No No Address PCP - General 07/12/24
--- NOTE | 2024-12-13 07:30 | US_ITS ---
PROCEDURE: US TRANSVAGINAL CLINICAL INDICATION: pelvic ultrasound@ [facility] 11 days from start [facility] COMPARISON: US US TRANSVAGINAL from 11/27/2023 US US TRANSVAGINAL from 04/29/2024 FINDINGS: Transvaginal sonographic images of the pelvis were obtained. UTERUS: 6.7cm x 4.4cmx 3.2cm with a combined endometrial thickness of 7.1 mm. The endometrium appears trilaminar. There is a small cystic area inferiorly within the endometrium measuring 5.2 mm x 3.0 mm x 3.3 mm. LEFT OVARY: 4.9 cmx2.9 cmx2cm with a volume of 14.4ml. Follicle 1. 1.07 cm Follicle 2. 1.0 cm Follicle 3. 0.61 cm Follicle 4. 0.80 cm Follicle 5. 0.96 cm Follicle 6. 1.44 cm Follicle 7. 0.65 cm Follicle 8. 0.71 cm Follicle 9. 0.71 cm Follicle 10. 0.54 cm RIGHT OVARY: 4.0cmx 2.4cmx2.6 cm with a volume of 13.1ml. Follicle 1. 0.61 cm Follicle 2. 0.71 cm Follicle 3. 0.81 cm Follicle 4. 0.92 cm Follicle 5. 1.16 cm Follicle 6. 0.98 cm Follicle 7. 0.98 cm Follicle 8. 0.79 cm Follicle 9. 0.79 cm Follicle 10. 0.54 cm There is a small amount of fluid adjacent to the right ovary. Both ovaries are seen and appear polycystic. Doppler flow to both ovaries are seen. There is no fluid in the cul-de-sac. IMPRESSION: 1. Anteverted uterus normal in shape and size. The endometrium measures 7.1 mm and is trilaminar. Within the endometrium there is a hypoechoic sac measuring 5.2 mm x 3.0 mm. Suggest a test. 2. Both ovaries are seen and appear multi-cystic. There is a small amount of fluid adjacent to the right ovary. 3. No fluid in the cul-de-sac. Dictated by: Edmund Van MD 12/13/2024 10:48 Edmund Van MD in [place] 12/13/2024 10:48
== END 2024-12-13 23:59 | disposition home or self-care (01) ==
LOC: RAD 07:16
PROVIDERS: PCP Physician Assistant; Visit Provider Obstetrics & Gynecology
DX: E28.2 Polycystic ovarian syndrome (principal); R93.89 Abnormal findings on diagnostic imaging of other specified body structures; Z31.9 Encounter for procreative management, unspecified
CPT/HCPCS: 76830

== ENCOUNTER 2024-12-14 09:07 | Outpatient (CLI) | payer OTHER, SELFPAY ==
--- OUTSIDE RECORDS SUMMARY | 2024-10-14 11:00 | XMS_ITS | Encounter Summary ---
Author Organization [facility] Address [address] [place] [address] Care Team Providers Care Assistant Project Engineer Name Role Phone Pcp, No Primary Care Provider [phone] Source Comments This information has been disclosed [...] release of HIV test results or diagnoses. [id number] Reason for Visit * Reason Comments Follow-up Encounter Details Date Type Department Care Team (Latest Contact Info) Description 10/14/2024 11:00 AM EDT Clinical Support [facility] Reproductive Endocrinology and Infertility at [facility] 76[address] [facility] [address] [place] [address] Trupti Neville APRN 7675 [facility] [address] [place] [address] Encounter for preconception consultation (Primary Dx); Amenorrhea; Hypothalamic hypogonadism ([facility]); PCOS (polycystic ovarian syndrome) Social History Tobacco [...] Sign Reading Time Taken Comments Blood Pressure - - Pulse - - Temperature - - Respiratory Rate - - Oxygen Saturation - - Inhaled Oxygen Concentration - - Weight 61.2 kg (135 lb) 10/13/2024 1:58 PM EDT Height 165.1 cm (5' 5 ) 10/13/2024 1:58 PM EDT Body Mass Index 22.47 10/13/2024 1:58 PM EDT documented in this encounter Progress Notes * Trupti Zamarripa Kranthi, SALESPERSON FLOOR COVERINGS - 10/14/2024 11:00 AM EDT Telehealth Appointment CC: Follow up, discuss test results/next steps HPI: 24 y.o. female here today to discuss the results of her diagnostic testing and discusstreatment options. Last menses 07/2023 after she stopped OCP. States she recently started a new job, off on Fridays - may have some flexibility with day off, butuncertain - no PTO built up at this time. Diagnosis: Desire to conceive Secondary Amenorrhea (negative provera withdrawal bleed) Concern for Hypo/Hypo PCOS Hypothyroidism H/o disorganized eating Fragile X premutation Varicella non-immune (scheduled for second vaccine 11/07/24) Pertinent History: Duration of infertility: 1 year Cavity/tubal assessment: SIS/HyCoSy on 09/30/2024: Normal cavity; normal contour; bilateral patent tubes. Ovarian reserve: AMH 7.93 (08/13/2024); AFC 20/15 on 09/30/24. Genetic carrier screening: Fragile X pre-mutation on [place] 14 Prior treatments: none C#/Mo/Yr CRH/ Other Regimen Gn Y/N IUI Y/N Other info Partner history: Name:Dimas Mike : 12/18/1998 Semen Analysis Date Volume Total Conc Motility Grade Morph 08/2024 3 mL 51 mil/mL 80 % - 92 % Received semen analysis from [facility] STIs: NEEDS Review of Systems: The following systems were reviewed and negative, except those noted in HPI: General, cardiovascular, respiratory, gastrointestinal, genitourinary, musculoskeletal, skin, neurologic, psychiatric, endocrine, heme, allergy Objective: Vitals: 10/13/24 1358 Weight: 135 lb (61.2 kg) Height: 5' 5 (1.651 m) General: [...] disorganized eating Fragile X premutation Varicella non-immune (scheduled for second vaccine 11/07/24) Plan: - Reviewed with patient all new/pertinent results - Testosterone not drawn at last visit - will ask staff to send order via [employer] to have drawn locally. - Scheduled for second Varicella vaccine on 11/07/24 - defer attempts until late November 2024 - Upholds desire to proceed with monitored OI/TIC (LE 5 x 5) per last discussion. Aware that she may require gonadotropins (concern for hypo/hypo). Reviewed risk for multiples and need for close monitoring, start low and go slow approach, particularly if requires gonadotropins. - Decline option for IVF-PGT-M for Fragile X at this time - Partner needs STIs if opts to proceed with IUI - Recently started new job - does not have PTO yet and only off on Fridays - reviewed that this is likely ok for baseline and initial US, but if no/minimal response and/or need to add gonadotropins will need to be seen more often than weekly and on days other than Fridays based on ovarian response - will discuss options with employer. - Patient will call in mid-late November at earliest to schedule (random) baseline US (amenorrhea). TRUPTI NEVILLE, CELIA 10/14/2024 11:25 AM No LOS data to display This was a Video visit, including two-way audio and video communication, in lieu of an in-person visit. The patient provided verbal consent to participate in the telehealth visit. The patient location for this telehealth visit is in home. I spent 25 minutes speaking with the patient, conducting an interview, performing a limited exam, and educating the patient on my assessment and plan. I also spe nt 10 minutes, on the same day as the encounter, preparing to see the patient (eg, review of tests), obtaining and/or reviewing separately obtained history, ordering medications, tests, or procedures, documenting clinical information in the electronic or other health record, and performing hzs-ngwc-ue-face activities. Cosigned by Camilo Fernández MD at 10/14/2024 10:27 PM EDT Associated attestation - Camilo Fernández MD - 10/14/2024 10:27 PM EDT Agree with PLOW HOLDER's note. Will continue per plan as described above. Camilo Fernández M.D. documented in this encounter Plan of Treatment Not on file documented as of this encounter Visit Diagnoses Diagnosis Encounter for preconception consultation- Primary Amenorrhea Absence of menstruation Hypothalamic hypogonadism ([facility]) PCOS (polycystic ovarian syndrome) Polycystic ovaries documented in this encounter Care Teams Assistant Project Engineer Relationship Specialty Start Date End Date Pcp, No No Address PCP - General 07/12/24 documented as of this encounter
--- OUTSIDE RECORDS SUMMARY | 2024-12-14 09:10 | XMS_ITS | Clinical Summary ---
Author Organization [facility] Address [address] [place] [address] Care Team Providers Care Zigzag Elastic Attacher Name Role Phone Pcp, No Primary Care Provider [phone] Source Comments This information has been disclosed [...] therelease of HIV test results or diagnoses. [id number] Allergies No known active allergies Medications [...] Description 10/14/2024 11:00 AM EDT Clinical Support [facility] Reproductive Endocrinology and Infertility at [address] [address] Trupti Crisostomo APRN Encounter for preconception consultation (Primary Dx); Amenorrhea; Hypothalamic hypogonadism ([facility]); PCOS (polycystic ovarian syndrome) 10/13/2024 Telephone [facility] Reproductive Endocrinology and Infertility at [address] [address] Christie Skinner MA 09/30/2024 11:00 AM EDT Procedure visit [facility] Reproductive Endocrinology and Infertility at [address] [address] Lawson Liu MD Amenorrhea (Primary Dx); Hypothalamic hypogonadism ([facility]-HCC); PCOS (polycystic ovarian syndrome) 09/28/2024 2:30 PM EDT Clinical Support [facility] Reproductive Endocrinology and Infertility at [address] [address] Lawson Liu MD Hurley, Emily Gay, MD Amenorrhea (Primary Dx); 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/2024 2:15 PM EDT Clinical Support [facility] Reproductive Endocrinology and Infertility at [address] [address] Mirna Ventura MD Walters, Murphy Encounter for [...] ORDERABLE S Final Result Performing Organization Address [facility]/ZIP Co de Phone Number [facility] [address] [place] [address] * POCT - ESTRADIOL (09/30/2024 9:00 AM EDT) Pathologist [facility] POCT - Estradiol 22.51 [facility] 09/30/2024 9:00 AM EDT Mirna Ventura MD POINT OF CARE TEST ORDERABLE S Final Result Performing Organization Address [facility] Co de Phone Number [facility] [address] [place] [address] * POCT - Prolactin (09/30/2024 9:00 AM EDT) Pathologist [facility] POCT - Prolactin 4.77 [facility] 09/30/2024 9:00 AM EDT Yennifer Antnoio MD POINT OF CARE TEST ORDERABLES Final Result Performing Organization Address [facility] Co de Phone Number [facility] [address] [place] [address] * Hepatitis C Ab w/reflex to HCV RNA, QN, PCR (08/12/2024 11:45 AM EDT) [facility] HCV Ab Non Reactive Non Reactive [facility] 1 08/12/2024 11:4 5 AM EDT 08/12/2024 Narrative [facility] - 08/13/2024 6:06 AM EDT Performed at: 01 - [facility] [address] [id number] Cut Filer: David Dean PhD, Phone: [phone] us Trupti Crisostomo APRN LAB BLOOD ORDERABLES Kenia l Result Performing Organization Address City/State/[facility] Co de Phone Number [facility] 1 from Last 3 Months or Most Recently Relevant to Health Maintenance Insurance BLUE ACCESS Care Teams Zigzag Elastic Attacher Relationship Specialty Start Date End Date Pcp, No No Address PCP - General 07/12/24
== END 2024-12-14 23:59 | disposition home or self-care (01) ==
LOC: LAB 09:08
PROVIDERS: PCP Physician Assistant; Visit Provider Obstetrics & Gynecology
DX: Z34.90 Encounter for supervision of normal pregnancy, unspecified, unspecified trimester (principal); N91.1 Secondary amenorrhea
CPT/HCPCS: 36415; 84144; 84702

== ENCOUNTER 2024-12-30 07:12 | Outpatient (CLI) | payer OTHER, SELFPAY ==
--- OUTSIDE RECORDS SUMMARY | 2024-12-30 07:14 | XMS_ITS | Encounter Summary ---
Author Organization [facility] Address [address] [place] [address] Care Team Providers Care Compatibility Test Engineer Name Role Phone Pcp, No Primary Care Provider [phone] Source Comments This information has been disclosed [...] release of HIV test results or diagnoses. [id number] Encounter Details Date Type Department Care Team (Late st Contact Info) Description 12/14/2024 Telephone [facility] Reproductive Endocrinology and Infertility at [place] [address] [facility] [address] [place], [place] [id number] Octavia Colin MA Social History Tobacco Use Types Packs/Day [...] encounter Miscellaneous Notes * Telephone Encounter - Octavia Colin MA - 12/14/2024 4:20 PM EDT Patient calling to make follow up appointment with Trupti as her OB has reccommended her to come back to us. She is scheduled for December 23 at 11 documented in this encounter Plan of Treatment Not on file documented as of this encounter Visit Diagnoses Not on filedocumented in this encounter Care Teams Compatibility Test Engineer Relationship Specialty Start Date End Date Pcp, No No Address PCP - General 07/12/24 documented as of this encounter
--- OUTSIDE RECORDS SUMMARY | 2024-12-30 07:14 | XMS_ITS | Clinical Summary ---
Author Organization [facility] Address [address] [place] [address] Care Team Providers Care Stock Checker Name Role Phone Pcp, No Primary Care Provider [phone] Source Comments This information has been disclosed [...] therelease of HIV test results or diagnoses. [id number] Allergies No known active allergies Medications [...] Encounters Date Type Department Care Team Description 12/14/2024 Telephone [facility] Reproductive Endocrinology and Infertility at [place] [address] [facility] [address] [place] [address] Octavia Colin MA 12/14/2024 Telephone [facility] Reproductive Endocrinology and Infertility at [facility] [address] [facility] [address] [place] [address] Yvonne Karimi MA 10/14/2024 11:00 AM EDT Clinical Support [facility] Reproductive Endocrinology and Infertility at [facility] [address] [address] Trupti Crisostomo APRN Encounter for preconception consultation (Primary Dx); Amenorrhea; Hypothalamic hypogonadism ([facility]-HCC); PCOS (polycystic ovarian syndrome) 10/13/2024 Telephone [facility] Reproductive Endocrinology and Infertility at [facility] [address] [address] Christie Skinner MA 09/30/2024 11:00 AM EDT Procedure visit [facility] Reproductive Endocrinology and Infertility at [facility] [address] [address] Lawson Liu MD Amenorrhea (Primary Dx); Hypothalamic hypogonadism ([facility]-HCC); PCOS (polycystic ovarian syndrome) from Last 3 Months Family History Medical [...] 9:00 AM EDT) POCT - Progesterone 0.182 [facility] Serum 09/30/2024 9:00 AM EDT us Mirna Ventura MD POINT OF CARE TEST ORDERABLE S Final Result [facility] [address] [place] [id number] * POCT - ESTRADIOL (09/30/2024 9:00 AM EDT) POCT - Estradiol 22.51 [facility] 09/30/2024 9:00 AM EDT us Mirna Ventura MD POINT OF CARE TEST ORDERABLE S Final Result Performing Organization Address [facility]/State/ZIP Co de Phone Number [facility] [address] [place] [address] * POCT - Prolactin (09/30/2024 9:00 AM EDT) POCT - Prolactin 4.77 [facility] 09/30/2024 9:00 AM EDT us Yennifer Antonio MD POINT OF CARE TEST ORDERABLES Final Result Performing Organization Address [facility] Co de Phone Number [facility] [address] [place] [address] * Hepatitis C Ab w/reflex to HCV RNA, QN, PCR (08/12/2024 11:45 AM EDT) HCV Ab Non Reactive Non Reactive [facility] 1 08/12/2024 11:4 5 AM EDT 08/12/2024 Narrative [facility] - 08/13/2024 6:06 AM EDT Performed at: 01 - [facility] [address] [id number] Director Of Sales Marketing: David Dean PhD, Phone: [phone] us Trupti Crisostomo APRN LAB BLOOD ORDERABLES Kenia l Result [facility] 1 from Last 3 Months or Most Recently Relevant to Health Maintenance Insurance [employer] ACCESS Care Teams Stock Checker Relationship Specialty Start Date End Date Pcp, No No Address PCP - General 07/12/24
--- OUTSIDE RECORDS SUMMARY | 2024-12-30 07:14 | XMS_ITS | Encounter Summary ---
Author Organization [facility] Address [facility] [place] [address] Care Team Providers Care Rest Room Matron Name Role Phone Pcp, No Primary Care Provider Source Comments This information has been disclosed [...] release of HIV test results or diagnoses. [id number] Health Encounter Details Date Type Department Care Team (Late st Contact Info) Description 12/14/2024 Telephone [facility] Reproductive Endocrinology and Infertility at [facility] [address] [place] [address] Yvonne Karimi MA Social History Tobacco Use Types Packs/Day [...] on file documented as of this encounter Plan of Treatment Not on file documented as of this encounter Visit Diagnoses Not on filedocumented in this encounter Care Teams Rest Room Matron Relationship Specialty Start Date End Date Pcp, No No Address PCP - General 07/12/24 documented as of this encounter
--- NOTE | 2024-12-30 07:30 | US_ITS ---
PROCEDURE: US TRANSVAGINAL CLINICAL INDICATION: Day 11 follicle scan on 12-30-24 COMPARISON: US US TRANSVAGINAL from 11/27/2023 US US TRANSVAGINAL from 04/29/2024 US US TRANSVAGINAL from 12/13/2024 FINDINGS: Transvaginal sonographic images of the pelvis were obtained. UTERUS: 6.5 cm x 4.1cmx 3.0cm anteverted with a combined endometrial thickness of 3.8mm. The endometrium appears trilaminar. There is a small fluid collection in the lower uterine segment measuring 0.5 cm x 0.3 cm. LEFT OVARY: 4.2cmx2.2cmx1.9cm with a volume of 9.3ml. Follicle 1. 0.91 cm Follicle 2. 0.93 cm Follicle 3. 0.71 cm Follicle 4. 1.01 cm Follicle 5. 0.56 cm Follicle 6. 0.67 cm Follicle 7. 0.82 cm Follicle 8. 0.67 cm Follicle 9. 0.93 cm Follicle 10. 0.57 cm Follicle 11. 1.18 cm RIGHT OVARY: 4.0 cmx 3.4cmx2.1cm with a volume of 15.2ml. Follicle 1. 1.68 cm Follicle 2. 0.95 cm Follicle 3. 0.98 cm Follicle 4. 1.04 cm Follicle 5. 1.17 cm Follicle 6. 1.05 cm Follicle 7. 0.68 cm Follicle 8. 1.79 cm Follicle 9. 1.05 cm Follicle 10. 0.78 cm Both ovaries are seen and appear normal. Doppler flow to both ovaries are seen. There is a small amount of fluid in the cul-de-sac. IMPRESSION: 1. The uterus is anteverted and normal in shape and size. The endometrium is thin and trilaminar. There is a small fluid collection within the lower uterine segment. 2. Both ovaries are seen and contain multiple follicles. Their size and numbers are listed in the body of the report. 3. Is a small amount of fluid within the cul-de-sac. Dictated by: Edmund Van MD 12/30/2024 18:35 Edmund Van MD in [place] 12/30/2024 18:35
== END 2024-12-30 23:59 | disposition home or self-care (01) ==
LOC: RAD 07:13
PROVIDERS: PCP Physician Assistant; Visit Provider Obstetrics & Gynecology
DX: E23.0 Hypopituitarism (principal); R93.89 Abnormal findings on diagnostic imaging of other specified body structures; Z31.9 Encounter for procreative management, unspecified
CPT/HCPCS: 76830

== ENCOUNTER 2025-01-13 08:08 | Outpatient (CLI) | payer OTHER, SELFPAY | END 2025-01-13 23:59 | disposition home or self-care (01) | LOC: LAB 08:09 | PROVIDERS: PCP Physician Assistant; Visit Provider Obstetrics & Gynecology | DX: Z34.90 Encounter for supervision of normal pregnancy, unspecified, unspecified trimester (principal); N92.6 Irregular menstruation, unspecified | CPT/HCPCS: 36415; 84702 ==

== ENCOUNTER 2025-01-30 07:15 | Outpatient (CLI) | payer OTHER, SELFPAY ==
--- OUTSIDE RECORDS SUMMARY | 2023-11-20 05:00 | XMS_ITS ---
Author Organization [place] Address 1210 [facility] [address] [place] [phone] Care Team Providers Care Collection Specialist Name Role Phone Malik Luna Primary Care Provider [phone] Sheron Morgan Unavailable [phone] Allergies No Known Allergies Results Component Value Reference Range Notes P-Beta-hCG Qualitative Serum Reviewed date:11/25/2023 05:12:46 PM Interpretation: Performing Lab: Notes/Report: Test performed by [email or web address] [address] , [address], [place] [address] Cam Arthur MD, Manager Combination CLIA: [id number] Beta-hCG Qualitative Serum Negative Negative REASON FOR VISIT B/C no period since July Problems Problem Type SNOMED Code ICD Code Onset Dates Problem Status W/U Status Risk Notes Problem Amenorrhea (98658877) Amenorrhea (N91.2) Active confirmed Vital Signs Blood pressure systolic 101 mm Hg 11/20/19 24 Blood pressure diastolic 61 mm Hg 024 Heart Rate 56 /min 11/20/2023 Height 65.25 in 11/20/2023 Weight 128.4 lbs 11/20/2023 BMI 21.20 kg/m2 11/20/2023 Encounters Encounter Location Date Provider Diagnosis [place] [facility] [address] [place] [id number] 11/20/2023 Sheron Morgan Amenorrhea N91.2 Assessments Encounter [...] Notes * FLORINA DUTTONOB:[birth year] (24 yo F)Acc No.[id number]:11/20/2023 Progress Notes Patient: FLORINA MORALEZ Provider: KENY Galloway :2000 A ge:23 Y S ex:Female Date:11/20/2023 Address:[address] [id number] Pcp:Malik uLna Subjective: * Chief Complaints: * 1 . [...] * Images: Billing Information: * Visit Code: 16172 Office Visit, Est Pt., Level 3. * Procedure Codes: * Electronic signature of KENY Aquino on 01/30/2025 at 07:17 AM EDT Sign off status: Pending * Provider: KENY Galloway Date: 11/20/2023 Generated for Annalise aguiar/Claritza/eTransmitting on: 01/30/2025 07:17 AM EDT History and Physical Notes * Examination Category Sub-Category Detail Notes Category Not es General Examination Heart: RSR Lungs: clear to auscultatio n Abdomen: bowel sounds present , soft and nontender, no organomegaly or masses, no guarding or rigidity General Appearance: NAD Chest: normal shape and exp ansion
--- OUTSIDE RECORDS SUMMARY | 2024-07-22 05:00 | XMS_ITS ---
Author Organization [facility] [address] [phone] Care Team Providers Care Research Librarian Name Role Phone Malik Luna Primary Care Provider Cliffmercedes Sheron Unavailable [phone] Allergies No Known Allergies Results Component Value [...] Duration) Notes Start Date End Date Status Bvqalrxif-Ltfqimrw-QW 30-2-10 MG/5ML 5-10 ml Orally 4 times [...] Duration: 6 days 07/22/2024 Active Vital Signs Blood pressure systolic 110 mm Hg 03/07/20 25 Blood pressure diastolic 70 mm Hg 025 Heart Rate 72 /min 07/22/2024 Height 65.25 in 07/22/2024 Weight 134.4 lbs 07/22/2024 BMI 22.19 kg/m2 07/22/2024 Encounters Encounter Location Date Provider Diagnosis [facility] [address] [place] [phone] 07/22/2024 Sheron Morgan Acute URI J06.9 and Bronchitis J40 Assessments Encounter Date Diagnosis (ICD Code) Assessment Notes Treatment Notes Treatment Clinical Notes Section Notes 07/22/2024 Acute URI (ICD-10 - J06.9) 07/22/2024 Bronchitis (ICD-10 - J40) Plan Of Treatment Medication Medication Name Sig Start Date Stop Date Notes Ttkvoblcx-Xgamqzzy-NT 30-2-1 0 MG/5ML 5-10 ml Orally 4 times a day, prn 07/22/2024 Albuterol Sulfate HFA 108 (9 0 Base) MCG/ACT 1 puff as needed Inhalation every 4 hrs, prn 07/22/2024 Medrol 4 MG as directed orally d aily; Duration: 6 days 07/22/2024 Next Appt Details Follow Up: prn, Reason: Progress Notes * FLORINA DUTTONCORTEZOB:[birth year] (24 yo F)Acc No.[id number]:07/22/2024 Progress Notes Patient: FLORINA MORALEZ Provider: KENY Galloway :2000 A ge:24 Y S ex:Female Date:07/22/2024 Address:[address] [id number] Pcp:Malik Luna Subjective: * Chief Complaints: * [...] > Provider reviewed results while patient in office.Sheron Morgan 07/25/2024 5:20:23 PM > ?LAB: TEN-Upper Respiratory [...] * Procedure Codes: 9 [address] [place], [address] CAPILLARY BLOOD DRAW, 26319 CBC WITH AUTO DIFF * Follow Up: p rn * Images: Billing Information: * Visit Code: 80530 Office Visit, Est Pt., Level 3. * Procedure Codes: [address] [place] [address] CAPILLARY BLOOD DRAW. [address]102 CBC WITH AUTO DIFF. * Electronic signature of KENY Aquino on 01/30/2025 at 07:16 AM EDT Sign off status: Pending * Provider: KENY Galloway Date: 0 07/22/2024 Generated for Juanitoi ng/Famarug/eTransmitting on: 0 01/30/2025 07:16 AM EDT History and Physical Notes * [...]
--- OUTSIDE RECORDS SUMMARY | 2025-01-30 07:17 | XMS_ITS | Encounter Summary ---
Author Organization [facility] Address [facility] [place] [address] Care Team Providers Care Human Resources Services Specialist Name Role Phone Pcp, No Primary [...] release of HIV test results or diagnoses. [id number] Health Encounter Details Date Type Department Care Team (Late st Contact Info) Description 12/14/[address] [facility] Reproductive Endocrinology and Infertility at [facility] [address] [place] [address] Yvonne Karimi MA Social History Tobacco [...] on filedocumented in this encounter Care Teams Human Resources Services Specialist Relationship Specialty Start Date End Date Pcp, No No Address PCP - General 07/12/24 documented as of this encounter
--- OUTSIDE RECORDS SUMMARY | 2025-01-30 07:17 | XMS_ITS | Patient Health Record ---
[facility] Address [address] [facility] [address] [place] [place] [id number] Care Team Providers Care Installation Tech Name Role Phone Malik Luna Primary Care Provider [phone] Sheron Morgan Unavailable [phone] Allergies No Known Allergies Results Component Value [...] 05:20:38 PM Interpretation:Abnormal Performing Lab: Notes/Report: Abnormal Reason For Referral No Information Medications Medication SIG (Take, Route, Frequency, Duration) Notes Start Date End Date Status Fdijtdkkq-Reipiuxt-YE 30-2-10 MG/5ML 5-10 ml Orally 4 times a day, prn 07/22/2024 Active Albuterol Sulfate HFA 108 (90 Base) MCG/ACT 1 puff as needed Inhalation every 4 hrs, prn 07/22/2024 Active Zithromax Z-Isaias 250 MG 2 pills first day then one daily for 4 days orally as directed; Duration: 5 days 07/26/2024 Active Levothyroxine Sodium 75 MCG 1 tablet in the morning on an empty stomach Orally Once a day; Duration: 30 day(s) Active Medrol 4 MG as directed orally daily; Duration: 6 days 07/22/2024 Active Immunizations Vaccine Route Administration Date Status Comme nts Varivax SC Subcutaneous 11/22/2010 Administered Varivax Unknown 07/03/2000 Administered Tetanus Tdap-Adacel (over 7yrs) IM Intramuscular 11/22/2010 Administered ppd ID Intradermal 02/28/2022 Administered ppd ID Intradermal 03/07/2022 Administered Menactra IM Intramuscular 11/22/2010 Administered Menactra IM Intramuscular 11/24/2017 Administered IPV Unknown 1999 Administered IPV Unknown 1999 Administered IPV Unknown 1999 Administered HIB Unknown 1999 Administered HIB Unknown 07/03/2000 Administered HEPB VACC PED/ADOL DOSE IM Unknown 1999 Administe red Hepatitis A (adult) Unknown 08/14/2018 Administered Hep A- Pediatric IM Intramuscular 11/24/2017 Administered Fluzone PF Quad (6-35 months) Unknown 02/27/2022 Administered COVID 19 Moderna Unknown 11/04/2021 Administered COVID 19 Moderna Unknown 12/02/2021 Administered Boostrix Tdap Unknown 11/26/2021 Administered Problems Problem Type SNOMED Code ICD Code Onset Dates Problem Status W/U Status Risk Notes Problem Asthma (550111408) ASTHMA NOS (493.90) Active confirmed Problem Amenorrhea (41535156) Amenorrhea (N91.2) Active confirmed Problem Contusion of toe (87566696) Contusion of right great toe without damage to nail, initial encounter (S90.111A) Active confirmed Problem Thyroid nodule (238288904) Thyroid nodule (E04.1) Active confirmed Problem Vaginal bleeding (811492494) Vaginal bleeding (N93.9) Active confirmed Problem Wound dehiscence (976724618) Wound dehiscence (T81.30XA) Active confirmed Problem Ultrasound scan abnormal (455734720) Abnormal ultrasound (R93.89) Active confirmed Vital Signs Heart Rate 72 /min 07/22/2024 Blood pressure diastolic 70 mm Hg 07/22/2024 Height 65.25 in 07/22/2024 Blood pressure systolic 110 mm Hg 07/22/2024 Weight 134.4 lbs 07/22/2024 BMI 22.19 kg/m2 07/22/2024 Encounters Encounter Location Date Provider Diagnosis [facility] [address] [place] [id number] 07/22/2024 Sheron Morgan Acute URI J06.9 and Bronchitis J40 [place] [address] [place] [id number] 07/25/2024 Sheron Lizarraga [address] [place] [id number] 09/19/2024 Malik Luna Assessments Encounter Date Diagnosis (ICD Code) Assessment Notes Treatment Notes Treatment Clinical Notes Section Notes 07/22/2024 Bronchitis (ICD-10 - J40) 07/22/2024 Acute URI (ICD-10 - J06.9) Plan Of Treatment No Information Insurance Providers Payer Name Payer Address Payer Phone Subscriber Number Group Number Insured Name Patient Relationship to Insured Coverage Start Date Coverage End Date [facility] [address] [place] [address] [id number] FLORINA DUTTON Self - patient is the insured Medical (General) History Surgical History Surgery Date(Month/Year) Broken ankle repain- [employer] [facility] 5 Hospitalization History Reason Date(Month/Year)
--- OUTSIDE RECORDS SUMMARY | 2025-01-30 07:17 | XMS_ITS | Clinical Summary ---
Author Organization [facility] Address [address] [place] [address] Care Team Providers Care Tape Coater Name Role Phone Pcp, No Primary Care Provider [phone] Source Comments This information has been disclosed [...] therelease of HIV test results or diagnoses. [id number] Allergies No known active allergies Medications [...] Type Department Care Team Description 12/14/[address] [facility] Reproductive Endocrinology and Infertility at [place] [address] [facility] [address] [place] [address] Octavia Colin MA 12/14/[address] [facility] Reproductive Endocrinology and Infertility at [facility] [address] [facility] [address] [place] [address] Yvonne Karimi MA from Last 3 Months Family History Medical [...] Smear (MyChart) 2020 Immunization: COVID-19 ( season) 2025 Immunization: Influenza (MyC amor) (#1) 2025 Hepatitis C Screening (MyChart) Completed Immunization: Meningococcal ACWY Aged Out No longer eligible based on patient's age to complete this topic Immunization: Pneumococcal Aged Out N o longer eligible based on patient's age to complete this topic Procedures Procedure Name Priority Date/Time Associated Diagnosis Comments HEPATITIS C AB W/REFLEX TO HCV RNA, QN, PCR Routine 08/12/2024 11:45 AM EDT from Last 3 Months or Most Recently Relevant to Health Maintenance Results * Hepatitis C Ab w/reflex to HCV RNA, QN, PCR (08/12/2024 11:45 AM EDT) HCV Ab Non Reactive Non Reactive [facility] 1 08/12/2024 11:4 5 AM EDT 08/12/2024 Narrative [facility] - 08/13/2024 6:06 AM EDT Performed at: - [facility] [address] [id number] [employer] General Manager: David Dean PhD, Phone: [phone] us Trupti Crisostomo COMPUTATIONAL PHYSICIST LAB BLOOD ORDERABLES Kenia geraldo Result [facility] 1 from Last 3 Months or Most Recently Relevant to Health Maintenance Insurance [employer] Member Subscriber Plan / Payer (Ef fective 2023-Present) Name:Shikha Mike Relation to Subscriber:Spouse Name:CECILLE MIKE Date of :1998 Address: [address] [place] [address] Payer ID:[id number] (NAIC) Type:PPO Address: [facility] [address] [place] [id number] Care Teams Tape Coater Relationship Specialty Start Date End Date Pcp, No No Address PCP - General 07/12/24
--- OUTSIDE RECORDS SUMMARY | 2025-01-30 07:17 | XMS_ITS | Encounter Summary ---
Author Organization [facility] Address [address] [place] [address] Care Team Providers Care Family Manager Name Role Phone Pcp, No Primary Care Provider [phone] Source Comments This information has been disclosed [...] release of HIV test results or diagnoses. [id number] Encounter Details Date Type Department Care Team (Late st Contact Info) Description 12/14/2024 Telephone [facility] Reproductive Endocrinology and Infertility at [place] [address] [facility] [address] [place], [place] [id number] Octavia Colin MA Social History Tobacco Use [...] on filedocumented in this encounter Care Teams Family Manager Relationship Specialty Start Date End Date Pcp, No No Address PCP - General 07/12/24 documented as of this encounter
--- NOTE | 2025-01-30 07:30 | US_ITS ---
PROCEDURE: US TRANSVAGINAL CLINICAL INDICATION: follicle scan for day 11 COMPARISON: US US TRANSVAGINAL from 11/27/2023 US US TRANSVAGINAL from 04/29/2024 US US TRANSVAGINAL from 12/13/2024 US US TRANSVAGINAL from 12/30/2024 FINDINGS: Transvaginal sonographic images of the pelvis were obtained. UTERUS: 6.6 cm x 4.1cmx 2.9 cm with a combined endometrial thickness of 5.1mm. There is a small amount of fluid within the endometrium. There is an ovoid collection of fluid in the lower uterine segment that measures 4.9 mm x 3.2 mm. LEFT OVARY: 4.8 cmx2.9 cmx2.0cm with a volume of 14.4ml. Follicle 1. 0.75 cm Follicle 2. 1.16 cm Follicle 3. 0.88 cm Follicle 4. 0.49 cm Follicle 5. 1.04 cm Follicle 6. 0.76 cm Follicle 7. 0.63 cm Follicle 8. 0.55 cm Follicle 9. 1.0 cm Follicle 10. 0.75 cm Follicle 11. 1.21 cm Follicle 12. 0.75 cm RIGHT OVARY: 4.5cmx 3.8 cmx2.1cm with a volume of 18.6ml. Follicle 1. 1.55 cm Follicle 2. 1.21 cm Follicle 3. 0.7 cm Follicle 4. 0.80 cm Follicle 5. 0.54 cm Follicle 6. 0.84 cm Follicle 7. 0.60 cm Follicle 8. 0.85 cm Follicle 9. 0.76 cm Follicle 10. 0.51 cm Follicle 11. 1.60 cm There is a small amount of fluid adjacent to the right ovary. Both ovaries are seen and appear normal. Doppler flow to both ovaries are seen. There is no fluid in the cul-de-sac. IMPRESSION: 1. Anteverted uterus normal in shape and size. The endometrium appears normal. There is a small amount of fluid within the endometrial cavity. There is a 4.9 mm ovoid collection of fluid in the lower uterine segment. 2. Both ovaries are slightly enlarged and has contain multiple follicles. The sizes are listed above in the body of this report. 3. There is a small amount of fluid adjacent to the right ovary. 4. No fluid in the cul-de-sac. Dictated by: Edmund Van MD 01/30/2025 18:27 Edmund Van MD in [place] 01/30/2025 18:27
== END 2025-01-30 23:59 | disposition home or self-care (01) ==
LOC: RAD 07:15
PROVIDERS: PCP Physician Assistant; Visit Provider Obstetrics & Gynecology
DX: E28.2 Polycystic ovarian syndrome (principal); N85.4 Malposition of uterus; R93.89 Abnormal findings on diagnostic imaging of other specified body structures; Z31.9 Encounter for procreative management, unspecified
CPT/HCPCS: 76830

== ENCOUNTER 2025-03-03 07:15 | Outpatient (CLI) | payer OTHER, SELFPAY ==
--- OUTSIDE RECORDS SUMMARY | 2023-11-20 05:00 | XMS_ITS ---
Author Organization [place] Address [address] [facility] [address] [place] [id number] Care Team Providers Care Senior Information Security Architect Name Role Phone Malik Luna Primary Care Provider Sheron Morgan Unavailable [phone] Allergies No Known Allergies Results Component Value Reference Range Notes P-Beta-hCG Qualitative Serum Reviewed date:11/25/2023 05:12:46 PM Interpretation: Performing Lab: Notes/Report: Test performed by [facility] [address] , [address], [place] [address] Cam Arthur MD, Globe Tester CLIA: [id number] Beta-hCG Qualitative Serum Negative Negative REASON FOR VISIT B/C no period since July Problems Problem Type SNOMED Code ICD Code Onset Dates Problem Status W/U Status Risk Notes Problem Amenorrhea (95281636) Amenorrhea (N91.2) Active confirmed Vital Signs Weight 128.4 lbs 11/20/2023 Blood pressure systolic 101 mm Hg 11/20/19 24 Blood pressure diastolic 61 mm Hg 024 Heart Rate 56 /min 11/20/2023 Height 65.25 in 11/20/2023 BMI 21.20 kg/m2 11/20/2023 Encounters Encounter Location Date Provider Diagnosis [place] [facility] [address] [place] [id number] 11/20/2023 Sheron Morgan Amenorrhea N91.2 Assessments Encounter Date Diagnosis (ICD Code) Assessment Notes Treatment Notes Treatment Clinical Notes Section Notes 11/20/2023 Amenorrhea (ICD-10 - N91.2) She is going to call and get in with an OBGYN. Will likely need an U/S. I will get a blood test today. Plan Of Treatment Treatment Notes Assessment Notes Amenorrhea She is going to call and get in with an OBGYN. Will likely need an U/S. I will get a blood test today. Next Appt Details Follow Up: via phone to repo rt test results, Reason: Progress Notes * FLORINA DUTTONOB:[birth year] (24 yo F)Acc No.[id number]:11/20/2023 Progress Notes Patient: FLORINA MORALEZ Provider: KENY Galloway :2000 A ge:23 Y S ex:Female Date:11/20/2023 Address:[address] [id number] Pcp:Malik Luna Subjective: * Chief Complaints: * 1 . B/C no period since July. * HPI: G YN: Pt is here today to discuss some concerns. Pt sts she discontinued taking her control August 03 and has not had a menstrual cycle. Pt sts the last cycle she had was July 27-. Pt sts she has been trying to conceive. Pt sts she has tracked her ovulation and taken multiple tests. * ROS: D ERMATOLOGY: no R kenny. n o H audie. G ASTROENTEROLOGY: no N ausea. n o V omiting. n o D iarrhea.? U ROLOGY: no D ifficulty urinating. n o B lood in urine. * Medical History: M edical History Verified. * Surgical History: B roken ankle repain- [employer] 07/04/2014. * Family History: F ather: alive 59 yrs, back problems. M other: alive 59 yrs, Thyroid problems. 1 sister(s) - healthy. . * Social History: C URRENT TOBACCO USE S moking Status: Patient does NOT smoke. C affeine: yes, frequency:pop occasionally. Home smoke detector use: yes. * Medications: D iscontinued Loestrin Fe 1.5/30 1.5-30 MG-MCG Tablet 1 tab(s) orally once a day , Medication List reviewed and reconciled with the patient * Allergies: N .K.D.A. Objective: * Vitals: W t:128.4, Temp:98.3, BP:101/61, HR:56, Nurse:AICHA, Ht: 65.25, BMI:21.20. * Examination: G eneral Examination: General Appearance: N AD. C hest: n ormal shape and expansion. H eart: R SR. L ungs: c lear to auscultation. A bdomen: bowel sounds present, soft and nontender, no organomegaly or masses, no guarding or rigidity. ? Assessment: * Assessment: 1. A menorrhea - N91.2 (Primary) Plan: * Treatment: Value Reference Range B eta-hCG Qualitative Serum Negative Negative - * Sheron Morgan 11/22/2023 10: 33:25 PM > Please let patient know this was neg, she will need an appt with the OBGYN.PramodKenya 11/25/2023 5:12:30 PM > Pt informed 11/24/23 Notes: She is going to call and get in with an OBGYN. Will likely need an U/S. I will get a blood test today.?? * Follow Up: v ia phone to report test results * Images: Billing Information: * Visit Code: 99588 Office Visit, Est Pt., Level 3. * Procedure Codes: * Electronic signature of KENY Aquino on 03/03/2025 at 07:17 AM EDT Sign off status: Pending * Provider: KENY Galloway Date: 0 11/20/2023 Generated for Annalise aguiar/Claritza/eTransmitting on: 07:17 AM EDT History and Physical Notes * Examination Category Sub-Category Detail Notes Category Not es General Examination Heart: RSR Lungs: clear to auscultatio n Abdomen: bowel sounds present , soft and nontender, no organomegaly or masses, no guarding or rigidity General Appearance: NAD Chest: normal shape and exp ansion
--- OUTSIDE RECORDS SUMMARY | 2024-07-22 05:00 | XMS_ITS ---
Author Organization [facility] Address [address] [phone] Care Team Providers Care Stone Sandblaster Name Role Phone Malik Luna Primary Care Provider CliffSheron long Unavailable [phone] Allergies No Known Allergies Results Component Value Reference Range Notes CBC Fingerstick (in house) Reviewed date:07/25/2024 05:20:27 PM Interpretation: Performing Lab: Notes/Report: wbc 7.6 3.5 - 10 lym 39.2 15 - 50 mid 7.1 2 - 15 gran 53.7 35 - 80 rbc 4.43 3.5 - 5.5 hgb 14.0 11.5 - 16.5 hct 41.4 35 - 55 mcv 93.4 75 - 100 mch 31.5 25 - 35 mchc 33.8 31 - 38 plat 205 100 - 400 TEN-Upper Respiratory PCR Reviewed date:07/25/2024 05:20:38 PM Interpretation:Abnormal Performing Lab: Notes/Report: Abnormal REASON FOR VISIT CONGESTION, COUGH Medications Medication SIG (Take, Route, Frequency, Duration) Notes Start Date End Date Status Ehmmktrqr-Xguxytsx-RN 30-2-10 MG/5ML 5-10 ml Orally 4 times a day, prn 07/22/2024 Active Albuterol Sulfate HFA 108 (90 Base) MCG/ACT 1 puff as needed Inhalation every 4 hrs, prn 07/22/2024 Active Levothyroxine Sodium 75 MCG 1 tablet in the morning on an empty stomach Orally Once a day; Duration: 30 day(s) Active Medrol 4 MG as directed orally daily; Duration: 6 days 07/22/2024 Active Vital Signs Weight 134.4 lbs 07/22/2024 Blood pressure systolic 110 mm Hg 07/23/19 25 Blood pressure diastolic 70 mm Hg 025 Heart Rate 72 /min 07/22/2024 Height 65.25 in 07/22/2024 BMI 22.19 kg/m2 07/22/2024 Encounters Encounter Location Date Provider Diagnosis [facility] [address] [place] [phone] 07/22/2024 Sheron Morgan Acute URI J06.9 and Bronchitis J40 Assessments Encounter Date Diagnosis (ICD Code) Assessment Notes Treatment Notes Treatment Clinical Notes Section Notes 07/22/2024 Acute URI (ICD-10 - J06.9) 07/22/2024 Bronchitis (ICD-10 - J40) Plan Of Treatment Medication Medication Name Sig Start Date Stop Date Notes Bhiltebey-Yzbtjwci-AA 30-2-1 0 MG/5ML 5-10 ml Orally 4 times a day, prn 07/22/2024 Albuterol Sulfate HFA 108 (9 0 Base) MCG/ACT 1 puff as needed Inhalation every 4 hrs, prn 07/22/2024 Medrol 4 MG as directed orally d aily; Duration: 6 days 07/22/2024 Next Appt Details Follow Up: prn, Reason: Progress Notes * FLORINA DUTTONCORTEZOB:[birth year] (24 yo F)Acc No.[id number]:07/22/2024 Progress Notes Patient: FLORINA MORALEZ Provider: KENY Galloway :2000 A ge:24 Y S ex:Female Date:07/22/2024 Address:[address] [id number] Pcp:Malik Luna Subjective: * Chief Complaints: * 1 . CONGESTION, COUGH. * HPI: E NT/respiratory: 24 year old female presents with c/o cough. c/o nasal congestion. Denies : sore throat. D enies : Fever. D enies : ear pain. D enies : headache. D enies : body aches. Pt sts her cough and congestion started 3 weeks ago. She works in a pediatric office. * ROS: D ERMATOLOGY: no R kenny. n o H audie. G ASTROENTEROLOGY: no N ausea. n o V omiting. n o D iarrhea.? U ROLOGY: no D ifficulty urinating. n o B lood in urine. * Medical History: M edical History Verified. * Surgical History: B roken ankle repain- [employer] 07/04/2014. * Family History: F ather: alive 60 yrs, back problems. M other: alive 60 yrs, Thyroid problems. 1 sister(s) - healthy. . * Social History: C URRENT TOBACCO USE S moking Status: Patient does NOT smoke. C affeine: yes, frequency:pop occasionally. Home smoke detector use: yes. * Medications: T aking Levothyroxine Sodium 75 MCG Tablet 1 tablet in the morning on an empty stomach Orally Once a day , Medication List reviewed and reconciled with the patient * Allergies: N .K.D.A. Objective: * Vitals: W t:134.4, Temp:99.0, BP:110/70, HR:72, O2 Sat:96% on RA, Nurse:kostas, Ht: 65.25, BMI:22.19. * Examination: E NT/Respiratory: General Appearance: N AD. E ars: a uditory canals normal bilaterally, TM's WNL. N ose : turbinates red, congested. S inuses : tender maxillary sinuses bilaterally. O ral cavity : erythema without exudate on pharynx. N sierra : n o cervical lymphadenopathy. H eart : R RR, normal S1 S2, no murmurs. L ungs: expiratory wheezes, no rales. Assessment: * Assessment: 1. A stew URI - J06.9 (Primary) 2 . B shawna - J40 Plan: * Treatment: Value Reference Range w bc 7.6 3.5 - 10 * l ym 39.2 15 - 50 * m id 7.1 2 - 15 * g ran 53.7 35 - 80 * r bc 4.43 3.5 - 5.5 * h gb 14.0 11.5 - 16.5 * h ct 41.4 35 - 55 * m cv 93.4 75 - 100 * m ch 31.5 25 - 35 * m chc 33.8 31 - 38 * p lat 205 100 - 400 * Kacey Bond 07/22/2024 9:01:1 6 AM > Provider reviewed results while patient in office.CathySheron Babb 07/25/2024 5:20:23 PM > ?LAB: TEN-Upper Respiratory PCR (Collection Date & Time - 07/22/2024)? Abnormal* Nury Espinoza 07/25/2024 08: 44:39 AM > pt is calling for resultsWhcorbyKristi 07/25/2024 10:29:20 AM > See phone encounterCrSheron meredith 07/25/2024 5:20:32 PM > see TE 2.?Bronchitis? Start Albuterol Sulfate HFA Aerosol Solution, 108 (90 Base) MCG/ACT, 1 puff as needed, Inhalation, every 4 hrs, prn, 1, Refills 1;?Start Medrol Tablet Therapy Pack, 4 MG, as directed, orally, daily, 6 days, 1, Refills 0.?? * Procedure Codes: 9 [address] [place], [address] CAPILLARY BLOOD DRAW, 38216 CBC WITH AUTO DIFF * Follow Up: p rn * Images: Billing Information: * Visit Code: 89815 Office Visit, Est Pt., Level 3. * Procedure Codes: [address] [place]. [address] CAPILLARY BLOOD DRAW. [address] CBC WITH AUTO DIFF. * Electronic signature of KENY Aquino on 03/03/2025 at 07:17 AM EDT Sign off status: Pending * Provider: KENY Galloway Date: 0 07/22/2024 Generated for Juanitoi ng/Famarug/eTransmitting on: 1 07:17 AM EDT History and Physical Notes * HPI (History of Present Illness) Category Sub-Category Detail Notes Category Not es ENT/respiratory sore throat Pt sts her c ough and congestion started 3 weeks ago. She works in a pediatric office. ear pain cough Fever headache nasal congestion body aches Examination Category Sub-Category Detail Notes Category Not es ENT/Respiratory Oral cavity : erythema without exudate on pharynx Sinuses : tender maxillary sin uses bilaterally Ears: auditory canals norm al bilaterally, TM's WNL Neck : no cervical lymphade nopathy Heart : RRR, normal S1 S2, n o murmurs Lungs: expiratory wheezes, no rales General Appearance: NAD Nose : turbinates red, nico ested
--- OUTSIDE RECORDS SUMMARY | 2025-02-24 09:00 | XMS_ITS | Encounter Summary ---
Author Organization [facility] Address [address] [place] [address] Care Team Providers Care Customer Service Engineer Name Role Phone Pcp, No Primary Care Provider [phone] Source Comments This information has been disclosed [...] release of HIV test results or diagnoses. [id number] Encounter Details Date Type Department Care Team (Latest Contact Info) Description 02/24/2025 9:00 AM EDT Clinical Support [facility] Reproductive Endocrinology and Infertility at [facility] [address] [address] Trupti Crisostomo APRN [address] [phone] Encounter for preconception consultation (Primary Dx); Hypothalamic hypogonadism (CMS-HCC); Fragile x chromosome; Amenorrhea Social History Tobacco Use Types Packs/Day [...] as of this encounter Progress Notes * Trupti Crisostomo APRN - 02/24/2025 9:00 AM EDT Telephone Consultation CC: Follow up, discuss test results/next steps HPI: 24 y.o. patient here today to discuss the results of the diagnostic testing and discuss treatment options. S/p several cycles of monitored OI (without Ovidrel) utilizing increasing doses of LE up to 7.5 mg with local TRANSPORT ASSISTANT, none of which resulted in + or spontaneous menses. States she completesUS monitoring 11 days after her first dose of LE. Reports EM lining measurements of 7.1, 3.8, 5.1 mm. Interested in 2-3 children. Agreeable to re-consideration of IVF Diagnosis: Desire to conceive Secondary Amenorrhea (negative provera withdrawal bleed) Concern for Hypo/Hypo ?PCOS (diagnosed 11/2023 - PCOM) Hypothyroidism H/o disorganized eating Fragile X premutation Varicella non-immune (second vaccine 11/07/24) Pertinent History: Duration of infertility: 1 year Cavity/tubal assessment: SIS/HyCoSy on 09/30/2024: Normal cavity; normal contour; bilateral patent tubes. Ovarian reserve: AMH 7.93 (08/13/2024); AFC 20/15 on 09/30/24. Genetic carrier screening: Fragile X pre-mutation on [place] Prior treatments: C#/Mo/Yr CRH/ Other Regimen Gn Y/N IUI Y/N Other info 2024 other LE up to 7.5mg N N N Monitored without Ovidrel. No ovulation No spontaneous menses Partner history: Name:Dimas Mike : 12/18/1998 Semen Analysis Date Volume Total Conc Motility Grade Morph 08/2024 3 mL 51 mil/mL 80 % - 92 % Received semen analysis from [facility] STIs: NEEDS if opts for IUI or IVF Review of Systems: The following systems were reviewed and negative, except those noted in HPI: General, cardiovascular, respiratory, gastrointestinal, genitourinary, musculoskeletal, skin, neurologic, psychiatric, endocrine, heme, allergy Objective: There were no vitals filed for this visit. General: No acute distress, alert & oriented [...] 24 y.o. Desire to conceive Secondary Amenorrhea (negative provera withdrawal bleed) Concern for Hypo/Hypo H/o disorganized eating ?PCOS (diagnosed 11/2023 - PCOM) Hypothyroidism Fragile X premutation Varicella non-immune (second vaccine 11/07/24) Plan: - Reviewed with patient all new/pertinent results - No response to LE at doses titrated to 7.5mg. Again reviewed my concern that amenorrhea/anovulation secondary to Hypo/Hypo and that she likely requires gonadotropins. - Offered consideration of gonadotropin TIC/IUI, emphasizing risk for delayed response (may requireseveral weeks of daily gonadotropins with frequent monitoring required), high risk for cancellation(poor response OR hyper- response), increased risk of multiples including high order multiples, etc. - Highly recommend consideration of IVF +/- PGT-A/M (Fragile X) as this offers the highest chance of success in the shortest amount of time with the lowest risk of multiples. This also allows for option of fertility preservation in light of her desire for 2-3 children and high risk for POI as a carrier of Fragile X premutation. Briefly reviewed risk for OHSS in light of age, BMI and AMH which maynecessitate freeze all cycle along with additional interventions to reduce risk - to be discussed in more detail at IVF consult. - Patient lives far from office and has limited PTO at new job. Will review with employer and can consider off-site monitoring (minimally for early US scans), can complete FMLA paperwork if needed, schedule earliest appt possible to reduce time off work, etc. - She is opten to consideration of IVF at this time. - Will ask financial team to contact patient. - Needs IVF consult with MD maria del carmen CRISOSTOMO APRN 02/25/2025 12:12 PM Total time I spent for E/M services on the date of the encounter: 30 minutes This was a Phone conversation, in lieu of an in-person visit. The patient provided verbal consent to participate in the telehealth visit. The patient location for this telehealth visit is in home. I spent 25 minutes speaking with the patient, conducting an interview, performing a limited exam, and educating the patient on my assessment and plan. I also spent 5 minutes, on the same day as the encounter, preparing to see the patient (eg, review of tests), obtaining and/or reviewing separately obtained history, documenting clinical information in the electronic or other health record, providing care coordination , and performing [id number]-ad-face activities. documented in this encounter Plan of Treatment Not on file documented as of this encounter Visit Diagnoses Diagnosis Encounter for preconception consultation- Primary Hypothalamic hypogonadism ([facility]-HCC) Fragile x chromosome Amenorrhea Absence of menstruation documented in this encounter Care Teams Customer Service Engineer Relationship Specialty Start Date End Date Pcp, No No Address PCP - General 07/12/24 documented as of this encounter
--- OUTSIDE RECORDS SUMMARY | 2025-03-03 07:17 | XMS_ITS | Clinical Summary ---
Author Organization [facility] Address [address] [place] [address] Care Team Providers Care Body Die Maker Name Role Phone Pcp, No Primary Care Provider [phone] Source Comments This information has been disclosed [...] therelease of HIV test results or diagnoses. [id number] Allergies No known active allergies Medications [...] Encounters Date Type Department Care Team Description 02/24/2025 9:00 AM EDT Clinical Support [facility] Reproductive Endocrinology and Infertility at [facility] [address] [facility] [address] [place] [address] Trupti Crisostomo APRN Encounter for preconception consultation (Primary Dx); Hypothalamic hypogonadism ([facility]-HCC); Fragile x chromosome; Amenorrhea 12/14/2024 Telephone [facility] Reproductive Endocrinology [facility] at [place] [address] [place] [address] [address] [place] [address] Octavia Colin MA 12/14/2024 Telephone [facility] Reproductive Endocrinology and Infertility at [facility] [address] [address] [address] [place] [id number] Yvonne Karimi MA from Last 3 Months [...] Last Done Comments Immunization: HPV (1 - 3-dose series) 2014 Alcohol Misuse Screening 2017 Depression Screening 2017 HIV Screening 2017 Cervical Cancer Screening/Pap Smear (MyChart) 2020 Immunization: COVID-19 ( season) 2025 12/02/2021, 11/04/2021 Immunization: Influenza (MyChart) (#1) 2025 08/31/2023 Immunization: DTaP/Tdap/Td (6 - Td or Tdap) 11/27/2031 11/26/2021, 07/03/2000, 1999, Additional history exists Immunization: Hepatitis B Completed 1999, 1999, 1999 Immunization: Meningococcal ACWY Completed 11/24/2017 Hepatitis C Screening (MyChart) Completed 08/12/2024 Immunization: Pneumococcal Aged Out N o longer [...] AM EDT Performed at: 01 - [facility] [address] [id number] Public Health Technician: David Dean PhD, Phone: [phone] Trupti Crisostomo APRN LAB BLOOD ORDERABLES [facility] 1 from Last 3 Months or Most Recently Relevant to Health Maintenance Insurance CHOICE Care Teams Body Die Maker Relationship Specialty Start Date End Date Pcp, No No Address PCP - General 07/12/24
--- OUTSIDE RECORDS SUMMARY | 2025-03-03 07:17 | XMS_ITS | Patient Health Record ---
[facility] Address [address] [facility] [address] [place] [id number] Care Team Providers Care Cnc Operator Programmer Name Role Phone Malki Luna Primary Care Provider Sheron Morgan Unavailable [phone] Allergies No Known Allergies Results Component Value [...] Duration) Notes Start Date End Date Status Pqndrwtzt-Uwnqtmvg-PD 30-2-10 MG/5ML 5-10 ml Orally 4 times [...] Status W/U Status Risk Notes Problem Asthma (810984019) ASTHMA NOS (493.90) Active confirmed Problem Amenorrhea (27953154) Amenorrhea (N91.2) Active confirmed Problem Contusion of toe (47294232) Contusion of right great toe without damage to nail, initial encounter (S90.111A) Active confirmed Problem Thyroid nodule (829854390) Thyroid nodule (E04.1) Active confirmed Problem Vaginal bleeding (762351385) Vaginal bleeding (N93.9) Active confirmed Problem Wound dehiscence (781223030) Wound dehiscence (T81.30XA) Active confirmed Problem Ultrasound scan abnormal (099527298) Abnormal ultrasound (R93.89) Active confirmed Vital Signs Heart Rate 72 /min 07/22/2024 Blood pressure diastolic 70 mm Hg 07/22/2024 Height 65.25 in 07/22/2024 Blood pressure systolic 110 mm Hg 07/22/2024 Weight 134.4 lbs 07/22/2024 BMI 22.19 kg/m2 07/22/2024 Encounters Encounter Location Date Provider Diagnosis [facility] [address] [place] [id number] 07/22/2024 Sheron Morgan Acute URI J06.9 and Bronchitis J40 [place] [address] [place] [id number] 07/25/2024 Sheron Lizarraga [address] [place] [id number] 09/19/2024 Malik Luna Assessments Encounter Date Diagnosis (ICD Code) Assessment Notes Treatment Notes Treatment Clinical Notes Section Notes 07/22/2024 Bronchitis (ICD-10 - J40) 07/22/2024 Acute URI (ICD-10 - J06.9) Plan Of Treatment No Information Insurance Providers Payer Name Payer Address Payer Phone Subscriber Number Group Number Insured Name Patient Relationship to Insured Coverage Start Date Coverage End Date SANDRINE HICKS [facility] [address] [place] [address] [id number] FLORINA DUTTON Self - patient is the insured Medical (General) History Surgical History Surgery Date(Month/Year) Broken ankle repain- [facility] Hospitalization History Reason Date(Month/Year)
--- NOTE | 2025-03-03 07:30 | US_ITS ---
PROCEDURE: US TRANSVAGINAL CLINICAL INDICATION: follicle scan cycle day 11 COMPARISON: US US TRANSVAGINAL from 11/27/2023 US US TRANSVAGINAL from 04/29/2024 US US TRANSVAGINAL from 12/13/2024 US US TRANSVAGINAL from 12/30/2024 US US TRANSVAGINAL from 01/30/2025 FINDINGS: Transvaginal sonographic images of the pelvis were obtained. UTERUS: 6.8 cm x 4.0cmx 2.9 cm anteverted with a combined endometrial thickness of 5mm. The endometrium is trilaminar There is a 6.2 mm collection of fluid in the lower uterine segment. LEFT OVARY: 4.4 cmx3.0cmx2.0cm with a volume of 14.1ml. Follicle 1. 0.65 cm Follicle 2. 0.60 cm Follicle 3. 0.89 cm Follicle 4. 0.70 cm Follicle 5. 0.56 cm Follicle 6. 0.81 cm Follicle 7. 0.71 cm Follicle 8. 0.70 cm Follicle 9. 1.06 cm Follicle 10. 0.63 cm RIGHT OVARY: 4.0 cmx 2.9 cmx2.2cm with a volume of 13.5ml. Follicle 1. 0.63 cm Follicle 2. 0.91 cm Follicle 3. 0.85 cm Follicle 4. 0.55 cm Follicle 5. 0.55 cm Follicle 6. 1.0 cm Follicle 7. 1.11 cm Follicle 8. 0.52 cm Follicle 9. 0.66 cm Follicle 10. 0.76 cm Both ovaries are seen and appear multi-cystic. Doppler flow to both ovaries are seen. There is no fluid in the cul-de-sac. IMPRESSION: 1. Anteverted uterus normal in shape and size. The endometrium is trilaminar in appears normal. There is a small anechoic area in the lower uterine segment. 2. Both ovaries contain multiple follicles. 3. No fluid in the cul-de-sac. Dictated by: Edmund Van MD 03/04/2025 08:21 Edmund Van MD in [place] 03/04/2025 08:21
== END 2025-03-03 23:59 | disposition home or self-care (01) ==
LOC: RAD 07:15
PROVIDERS: PCP Physician Assistant; Visit Provider Obstetrics & Gynecology
DX: E23.0 Hypopituitarism (principal); N85.4 Malposition of uterus; R93.89 Abnormal findings on diagnostic imaging of other specified body structures
CPT/HCPCS: 76830